=== PATIENT | female | born 1945 | race Caucasian/White ===

== ENCOUNTER 2024-08-20 14:32 | Inpatient (IN) ==
--- NOTE | 2024-08-20 14:43 | Emergency Department Note ---
Impression & Plan Atrial fibrillation with rapid ventricular response, Pneumonia ED Provider Note NAME: TONE SCHAFER AGE: 78 SEX: F : 1945 ARRIVES VIA: Ambulance INFORMANT: Patient, EMS ED PROVIDER(S): Ildefonso Jimenez DO CHIEF COMPLAINT: Palpitations HPI: The patient is a 78-year-old female who was sent to the emergency department directly from [facility] for an evaluation of palpitations. The patient has been experiencing palpitations over the course of the last few days. She is also been short of breath. She has noticed some swelling in her lower extremities. She denies having any hemoptysis. She denies having any chest pain. She went to see and become established with a new primary care physician today. She was sent directly to the emergency department because of tachycardia. The patient does not have a history of atrial fibrillation. The patient states that she only has a history of asthma and she is been compliant with her outpatient medications otherwise. ROS: See above HPI for pertinent positives & negatives. A total of 10 systems reviewed and were otherwise negative. PAST MEDICAL HISTORY: See Below PAST SURGICAL HISTORY: See Below FAMILY HISTORY: See Below SOCIAL HISTORY: See Below HOME MEDICATIONS: See Below ALLERGIES: See Below VITALS: See Below PHYSICAL EXAMINATION: GENERAL: Patient is awake alert in no acute distress patient is resting comfortably and showing no signs of anxiety EYES: The conjunctivae are clear. The pupils are round and reactive. EARS, NOSE, MOUTH AND THROAT: The nose is without any evidence of any deformity. NECK: The neck is nontender and supple. HJR was noted. RESPIRATORY: Diminished breath sounds are noted at both bases. There were rales at both bases. There was mild conversational dyspnea. CARDIOVASCULAR: Cardiac and irregular heart sounds were noted to auscultation. There is no definite murmur. GASTROINTESTINAL: The abdomen is soft. Abdomen is nontender. MUSCULOSKELETAL/EXTREMITIES: There is no evidence of gross deformity full range of motion is noted in the hips and shoulders. SKIN: Skin is warm and dry. Pedal edema was noted bilaterally. NEUROLOGIC: Patient is awake alert and oriented to place and situation. MEDICAL DECISION MAKING: The patient is a 78-year-old female who presented to the emergency department for an evaluation of difficulty breathing. The patient's been having difficulty breathing over the course of the last several days. She went to see and become established with a new family doctor who was at [facility]. They noticed that she was in rapid atrial fibrillation and sent the patient to the emergency department. The patient was treated with IV Cardizem in the emergency department. Her chest x-ray does appear to be consistent with some volume overload but also the possibility of pneumonia. For this reason she was also treated with IV antibiotics. I discussed the patient's laboratory and radiographic studies with her. Her heart rate did improved. I discussed her condition with the on-call [facility] hospitalist. They have agreed to evaluate the patient in the emergency department. Likely she will require further workup which will be done as an inpatient. Triage Nursing notes reviewed. Prior medical records reviewed Vital Signs: reviewed and remarkable for tachycardia. Differential diagnosis: Premature contractions, electrolyte abnormality, cardiac dysrhythmia, thyroid dysfunction, pulmonary embolism, infection, gastrointestinal, as well as other pathologies. ER treatment provided: See below Diagnostics interpreted by me: ECG: EKG was obtained in the emergency department. My interpretation is atrial fibrillation at 148 bpm. PVCs were noted. Nonspecific ST depressions were noted. No previous tracing was available. An EKG obtained at the primary care physician's office was evaluated. My interpretation is atrial fibrillation at [address] segment depressions were noted. This compares similar to the EKG obtained in the emergency department. Cardiac Monitoring: An order was placed for continuous cardiac monitoring. The monitor shows a rate of 110 bpm with atrial fibrillation and RVR. Laboratory studies: As stated above and show below. Imaging studies: See below. Radiographic imaging was reviewed by myself Consultation(s): I discussed this case with Cassidy who is on-call for the [facility] Hospitalist group. ED COURSE: Procedures: none Critical Care: I have personally spent greater than 45 minutes of critical care time in the direct management of this patient. This includes bedside care, interpretation of diagnostic studies, and testing, discussion with consultants, patient, and family members, and other required patient management activities. This 45 minutes is in excess of all separately billable procedures. Past Med/Surg History Problem List (Updated 08/20/24 @ 16:27 by Ildefonso Jimenez DO) Pneumonia (Acute) Atrial fibrillation with rapid ventricular response (Acute) Medical History Asthma Surgical History No pertinent past surgical history Social History Smoking Status: Never smoker Preferred Language: Cameroonian Feels Safe at Home: Yes Allergies Allergies Allergy/AdvReac Type Severity Reaction Status Date / Time No Known Allergies Allergy Unverified 09/21/19 09:22 Home Meds Home Medications Medication Instructions Recorded Confirmed cetirizine 10 mg tablet (Zyrtec) 10 mg PO DAILY 09/21/19 08/20/24 fluticasone 250 mcg-salmeterol 50 1 inh inhalation DAILY 09/21/19 08/20/24 mcg/dose blistr powdr for inhalation (Advair Diskus) montelukast 10 mg tablet 10 mg PO DAILY 09/21/19 08/20/24 (Singulair) Oxygen 08/20/24 08/20/24 albuterol sulfate 90 mcg/actuation 1 inh inhalation QID PRN Shortness 08/20/24 08/20/24 aerosol inhaler Of Breath Or Wheezing coenzyme Q10 10 mg capsule (Co 10 mg PO DAILY 08/20/24 08/20/24 Q-10) mecobalamin (vitamin B12) 1,000 1,000 mcg PO DAILY 08/20/24 08/20/24 mcg chewable tablet (B12 Active) thyroid (pork) 60 mg tablet 60 mg PO QAM 08/20/24 08/20/24 Results & Data (ED) Vital Signs Vital Signs - 24 hr 08/20/24 14:39 08/20/24 14:39 08/20/24 14:39 Temperature 36.8 C Temperature Source Oral Pulse Rate 147 H Pulse Rate [Apical] Respiratory Rate 22 Respiratory Effort / Characteristics Non-Labored Respiratory Depth Normal Normal Blood Pressure 110/95 Blood Pressure [Left Arm] Blood Pressure Mean 100 Blood Pressure Mean [Left Arm] Blood Pressure Position [Left Arm] Pulse Oximetry 96 Oxygen Delivery Method Room Air Room Air Sepsis Recent Fever Within 48 Hours No Sepsis New/Unexplained Change in Mental Status No Sepsis Action Taken by Nursing Physician Notified 08/20/24 14:39 08/20/24 14:59 08/20/24 15:19 Temperature Temperature Source Pulse Rate 130 H Pulse Rate [Apical] 122 H Respiratory Rate 20 20 Respiratory Effort / Characteristics Non-Labored Non-Labored Respiratory Depth Normal Normal Blood Pressure Blood Pressure [Left Arm] 139/89 Blood Pressure Mean Blood Pressure Mean [Left Arm] 105 Blood Pressure Position [Left Arm] Pulse Oximetry 93 Oxygen Delivery Method Room Air Sepsis Recent Fever Within 48 Hours Sepsis New/Unexplained Change in Mental Status Sepsis Action Taken by Nursing 08/20/24 16:54 08/20/24 18:30 Temperature Temperature Source Pulse Rate Pulse Rate [Apical] 119 H 110 H Respiratory Rate 20 24 Respiratory Effort / Characteristics Respiratory Depth Normal Normal Blood Pressure Blood Pressure [Left Arm] 123/93 118/90 Blood Pressure Mean Blood Pressure Mean [Left Arm] 103 99 Blood Pressure Position [Left Arm] Lying Pulse Oximetry 97 95 Oxygen Delivery Method Room Air Room Air Sepsis Recent Fever Within 48 Hours Sepsis New/Unexplained Change in Mental Status Sepsis Action Taken by Jail Medications Current Medication List: was personally reviewed by me Laboratory Data Attestation: I reviewed the patient's lab results. 08/20/24 14:45 08/20/24 14:45 Lab Results 08/20/24 08/20/24 Range/Units 14:45 16:06 WBC 12.20 H (4.8-10.8) K/ul RBC 4.86 (4.20-5.40) M/uL Hgb 14.7 (12.0-16.0) g/dl Hct 44.9 (37.0-47.0) % MCV 92.4 (80.0-100.0) fL MCH 30.2 (25.0-34.0) pg MCHC 32.7 (32.0-36.0) g/dL RDW Std Deviation 49.4 H (36.4-46.3) fL RDW Coeff of [place] 14.5 (11.5-14.5) % Plt Count 192 (130-400) K/uL MPV 10.3 (9.4-12.4) fL Immature Gran % (Auto) 0.5 % Neut % (Auto) 77.4 % Lymph % (Auto) 11.4 % [place] % (Auto) 9.8 % Eos % (Auto) 0.7 % Baso % (Auto) 0.2 % Neut # (Auto) 9.45 H (1.40-6.50) K/uL Lymph # (Auto) 1.39 (1.20-3.40) K/uL [place] # (Auto) 1.19 H (0.11-0.59) K/uL Eos # (Auto) 0.08 (0.00-0.50) K/uL Baso # (Auto) 0.03 (0.00-0.20) K/uL Immature Gran # (Auto) 0.06 (0.01-0.20) K/uL PT 10.8 (9.0-12.0) Seconds INR 1.0 (0.9-1.1) APTT 29 (21-31) Seconds PTT Ratio 1.1 VBG pH 7.40 (7.36-7.41) VBG pCO2 45 (38-50) mmHg VBG pO2 < 20 mmHg VBG HCO3 28 mmol/L VBG O2 Saturation < 60.0 % VBG Base Excess 2.5 mEq/L Sodium 138 (136-145) mmol/L Potassium 4.0 (3.5-5.1) mmol/L Chloride 103 (98-107) mmol/L Carbon Dioxide 25 (21-32) mmol/L Anion Gap 10 (3-11) BUN 16 (6-23) mg/dl Creatinine 1.02 (0.6-1.2) mg/dl Est Cr Clr Drug Dosing 53.9 ml/min eGFR 55.96 BUN/Creatinine Ratio 15.7 (10-20) Glucose 114 H (70-99(Fasting)) mg/dl Lactate 1.4 (0.4-2.0) mmol/L Calcium 9.4 (8.6-10.3) mg/dl Magnesium 2.1 (1.7-2.4) mg/dl Total Bilirubin 0.7 (0.2-1.0) mg/dl AST 13 (13-39) U/L ALT 12 (7-52) U/L Alkaline Phosphatase 85 (34-104) U/L Troponin I High Sens 12.2 (0-14) pg/ml C-Reactive Protein 4.45 H (0-0.5) mg/dl Total Protein 7.7 (6.0-8.3) gm/dl Albumin 4.1 (3.4-5.0) gm/dl Globulin 3.6 (2.5-4.0) gm/dl Albumin/Globulin Ratio 1.1 (0.9-2) Procalcitonin < 0.02 (0-0.5) ng/ml TSH 5.959 H (0.300-4.500) uIu/ml Free T4 0.87 (0.61-1.60) ng/dl SARS-CoV-2 (PCR) NEGATIVE (Negative) Influenza Type A (PCR) Negative (Neg) Influenza Type B (PCR) Negative (Neg) RSV (RT-PCR) Negative (Neg) Administered Medications Guaifenesin/Codeine Phosphate (Guaifenesin/Codeine 100mg/10mg 5ml Udc) 5 ml PO Q6H PRN PRN Reason: Cough Stop: 09/19/24 17:07 Last Admin: 08/20/24 18:07 Dose: 5 ml Documented By: MARTHA Diltiazem HCl 125 mg/ Dextrose 125 mls @ 5 mls/hr IV .Q24H EVARISTO; Protocol Stop: 09/19/24 17:14 Last Admin: 08/20/24 18:08 Dose: 5 mg/hr, 5 mls/hr Documented By: MARTHA Co-signed By: JENNIFFER Discontinued Medications Diltiazem HCl (Diltiazem Hcl 5 Mg/Ml 5 Ml Vial) 10 mg IV NOW STA Stop: 08/20/24 14:43 Last Admin: 08/20/24 14:46 Dose: 10 mg Documented By: MARTHA Co-signed By: KELSIE Diltiazem HCl (Diltiazem Hcl 5 Mg/Ml 5 Ml Vial) 10 mg IV NOW STA Stop: 08/20/24 16:48 Last Admin: 08/20/24 17:26 Dose: 10 mg Documented By: MARTHA Co-signed By: DRAGAN Furosemide (Furosemide Inj 20 Mg/2 Ml Vial) 20 mg IV ONE ONE Stop: 08/20/24 17:16 Last Admin: 08/20/24 17:59 Dose: 20 mg Documented By: MARTHA Magnesium Sulfate/Dextrose (Magnesium Sulfate / D5w) 1 gm in 100 mls @ 100 mls/hr IV NOW STA Stop: 08/20/24 15:41 Last Infusion: 08/20/24 16:16 Dose: Infused Documented By: Admin: 08/20/24 14:47 Dose: 100 mls/hr Documented By: MARTHA Ceftriaxone Sodium (Rocephin) 2,000 mg in 50 mls @ 100 mls/hr IV NOW STA Stop: 08/20/24 15:54 Last Infusion: 08/20/24 17:13 Dose: Infused Documented By: Admin: 08/20/24 16:38 Dose: 100 mls/hr Documented By: MARTHA Ioversol (Optiray 320 125ml) 119 ml IV ONCE ONE Stop: 08/20/24 19:08 Last Admin: 08/20/24 19:08 Dose: 119 ml Documented By: JAZMIN Imaging Data Attestation: I personally reviewed and interpreted this imaging study as follows: My Impression: 1 view chest x-ray was obtained in the emergency department. My interpretation is questionable infiltrate noted, no free air, final report below. Radiologist's Impression: Chest X-Ray 08/20/24 14:42 XR chest 1V portable HISTORY: 78 years-old Female Dysrhythmia acute shortness of breath COMPARISON: None TECHNIQUE: AP view of the chest FINDINGS: Ill-defined medial right upper lung opacities. Layering left pleural effusion with left basilar consolidation. Pulmonary vascular congestion. Probable trace right pleural effusion. Bones appear grossly intact. IMPRESSION: 1. Cardiomegaly with pulmonary vascular congestion. 2. Moderate left and trace right pleural effusions and left basilar consolidation. 3. Possible right upper lobe airspace opacities. Attention at follow-up recommended. ACT 112: Negative or not required by law. The above report was generated using voice recognition software. It may contain grammatical, syntax or spelling errors. Electronically signed by: Yash Hunter M.D. 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 ED Provider: Ildefonso Jimenez Discharge Problem: Atrial fibrillation with rapid ventricular response, Pneumonia Patient Disposition: Being Evaluated by Hospitalist Forms Stand Alone Forms: My [facility] [place] Prescriptions Prescriptions: No Action fluticasone propion-salmeterol [Advair Diskus] 250-50 mcg/dose Blister With Device 1 inh INHALATION DAILY cetirizine [Zyrtec] 10 mg Tablet 10 mg PO DAILY montelukast [Singulair] 10 mg Tablet 10 mg PO DAILY thyroid (pork) 60 mg tablet 60 mg PO QAM (DME) Oxygen Rx Instructions: per pt she had a oxygen compressor/nasal cannula that she used has needed and it helped her greatly but someone came the other day and took it from her coenzyme Q10 [Co Q-10] 10 mg Capsule 10 mg PO DAILY albuterol sulfate 90 mcg/actuation Hfa Aerosol Inhaler 1 inh INHALATION QID PRN (Reason: Shortness Of Breath Or Wheezing) mecobalamin (vitamin B12) [B12 Active] 1,000 mcg Tablet,Chewable 1,000 mcg PO DAILY Referrals Referrals: PCP,NO [Physician] - Discharge Problem: Pneumonia Qualifiers: Pneumonia type: due to unspecified organism Laterality: unspecified laterality Lung location: unspecified part of lung Qualified Code(s): J18.9 - Pneumonia, unspecified organism
[2024-08-20] MEDS: dilTIAZem HCl 5 MG/ML 5 ML VIAL IV STA ×2 (14:46→17:26)
[2024-08-20] MEDS: MAGNESIUM SULFATE / D5W 1 GM/100 ML BAG IV STA (14:47)
[2024-08-20 15:05] LABS: Basophils # (auto) 0.03 K/uL (0.00-0.20); Basophils % (auto) 0.2 %; Eosinophils # (auto) 0.08 K/uL (0.00-0.50); Eosinophils % (auto) 0.7 %; Hematocrit (blood only) 44.9 % (37.0-47.0); Hemoglobin 14.7 g/dl (12.0-16.0); Immature Granulocytes # (auto) 0.06 K/uL (0.01-0.20); Immature Granulocytes % (auto) 0.5 %; Lymphocytes # (auto) 1.39 K/uL (1.20-3.40); Lymphocytes % (auto) 11.4 %; Mean Corpuscular Hemoglobin 30.2 pg (25.0-34.0); Mean Corpuscular Hgb Conc 32.7 g/dL (32.0-36.0); Mean Corpuscular Volume 92.4 fL (80.0-100.0); Mean Platelet Volume 10.3 fL (9.4-12.4); Monocytes # (auto) 1.19 K/uL (0.11-0.59); Monocytes % (auto) 9.8 %; Neutrophils # (auto) 9.45 K/uL (1.40-6.50); Neutrophils % (auto) 77.4 %; Platelet Count 192 K/uL (130-400); RDW Coefficient of Variation 14.5 % (11.5-14.5); RDW Standard Deviation 49.4 fL (36.4-46.3); Red Blood Count 4.86 M/uL (4.20-5.40)
--- NOTE | 2024-08-20 15:19 | XRay Report ---
XR chest 1V portable HISTORY: 78 years-old Female Dysrhythmia acute shortness of breath COMPARISON: None TECHNIQUE: AP view of the chest FINDINGS: Ill-defined medial right upper lung opacities. Layering left pleural effusion with left basilar conso lidation. Pulmonary vascular congestion. Probable trace right pleural effusion. Bones appear grossly intact. IMPRESSION: 1. Cardiomegaly with pulmonary vascular congestion. 2. Moderate left and trace right pleural effusions and left basilar consolidation. 3. Possible right upper lobe airspace opacities. Attention at follow-up recommended. ACT 112: Negative or not required by law. The above report was generated using voice recognition software. It may contain grammatical, syntax o r spelling errors. Electronically signed by: Yash Hunter M.D. 08/20/2024 3:17 PM
[2024-08-20 15:25] LABS: Albumin Globulin Ratio 1.1 (0.9-2); Albumin Level 4.1 gm/dl (3.4-5.0); BUN Creatinine Ratio 15.7 (10-20); Bilirubin,Total 0.7 mg/dl (0.2-1.0); Calcium 9.4 mg/dl (8.6-10.3); Creatinine Clr Calc Pharmacy 53.9 ml/min; Globulin 3.6 gm/dl (2.5-4.0); Magnesium 2.1 mg/dl (1.7-2.4); Total Protein 7.7 gm/dl (6.0-8.3)
[2024-08-20 15:30] LABS: Troponin I High Sensitivity 12.2 pg/ml (0-14)
[2024-08-20 15:33] LABS: Partial Thromboplastin Ratio 1.1; Partial Thromboplastin Time 29 Seconds (21-31); Prothrombin Time 10.8 Seconds (9.0-12.0)
[2024-08-20 15:40] LABS: Thyroid Stimulating Hormone 5.959 uIu/ml (0.300-4.500)
[2024-08-20 15:54] LABS: C Reactive Protein 4.45 mg/dl (0-0.5)
[2024-08-20 16:12] LABS: T4 Free Thyroxine 0.87 ng/dl (0.61-1.60)
[2024-08-20 16:15] LABS: Base Excess VBG 2.5 mEq/L; HCO3 VBG 28 mmol/L; Oxygen Saturation VBG < 60.0 %; PCO2 VBG 45 mmHg (38-50); PO2 VBG < 20 mmHg
[2024-08-20 16:35] LABS: Influenza A virus by PCR Negative (Neg); Influenza B virus by PCR Negative (Neg); RSV by PCR Negative (Neg); SARS CoV2 RNA(COVID-19) Ceph NEGATIVE (Negative)
[2024-08-20] MEDS: cefTRIAXone SODIUM 2,000 MG/50 ML BAG IV STA (16:38)
--- NOTE | 2024-08-20 16:43 | History & Physical Report ---
Date of Service August 20, 2024 Assessment & Plan (1) Atrial fibrillation with rapid ventricular response: (2) Pneumonia: (3) Asthma: Plan A-fib with RVR -Appears to be new onset, has never previously been diagnosed with such, possibly in the setting of acute pneumonia and infection. -Patient started on Cardizem bolus 10 mg IV x 1 - will continue on drip for now. Not previously on any cardiac medications - Start heparin gtt, CHADs VASC score of 3 - Check echo - Lasix 20 mg IV for significant lower extremity edema, place purwick - Will start metoprolol tartrate 25 mg Q6H - Consult cardiology - discussed with Dr. Robins - Check A1 with a.m. labs with hyperglycemia - Previous lipid panel was elevated showing triglycerides 175, cholesterol 243, HDL 45, LDL 163 on outpatient epic review - Noted TSH is elevated today at 5.95, previously in May this year was 2.13 Multifocal pneumonia History of asthma -Increased O2 needs, previously on O2 at home, removed recently, will need to step prior to discharge home -Advair daily at home, will switch over to levalbuteral nebs here, pulmonary toilet with incentive spirometer, flutter, Mucinex, Tessalon Perles, robitussin w/codeine for cough -May benefit from dose of Solu-Medrol IV with asthmatic history -CRP elevated at 4.45, WBC BC 12.2, no left shift, ABG is reviewed and is within normal limits -IV ceftriaxone started in the ER, follow blood culture, obtain sputum culture if produces -Check MRSA swab -COVID/RSV/flu swab is negative -CXR reviewed showing left trace and right pleural effusion, left basilar consolidation, right upper lobe opacity - Will check CTA chest to r/o PE with above DVT ppx: teds, scds, heparin gtt Lines: PIV x 2 FEN/GI: Heart healthy CODE: Full code Dispo: From home, likely to remain in the hospital x 1-2 days A total of 75 minutes were spent with greater than 50% of that time face to face with the patient, personally reviewing all current laboratories, imaging studies, past medication reconciliation, outpatient chart review, and discussion with specialists to collaborate care for the patient with attending. Please see attending documentation for corrections and/or additions. Update: Patient is refusing heparin drip and the CTA chest to nursing. I have gone back and spoken with the patient and her again. She would like to eat something first and is asking what dose her heparin is several times. I have informed her that it is 27 mL/h after evaluating the weight-based dosing with nurse at bedside. She would still like to think about this. She was advised to continue heparin drip and have CTA completed as recommended. History of Present Illness Chief Complaint: Palpitations Primary Care Provider: NO PCP This is a 78-year-old female with PMHx of asthma, without any significant cardiac history who presented to PCP office today to establish as a new patient. She had complaints at that point in time of increased dyspnea on exertion worsening within the past 1 week, mild cough, previously had O2 as needed however does not have access to this at home recently. She was requesting oxygen prescription to be set up for her at outpatient clinic. She was found to be in rapid atrial fibrillation at the office and therefore sent over to the hospital. Patient had rates up into the 120s. She was given Cardizem IV bolus 10 mg x 1. IV magnesium 1 g. CXR showed left trace and right pleural effusion, left basilar consolidation and right upper lobe opacities concerning for pneumonia versus fluid overload. She was started on IV ceftriaxone in the ER. Upon my visit in the ER, pt HR remain in the 130s and she is asymptomatic. Allergies Allergy/AdvReac Type Severity Reaction Status Date / Time No Known Allergies Allergy Unverified 09/21/19 09:22 Home Medications Medication Instructions Recorded Confirmed Type cetirizine 10 mg tablet (Zyrtec) 10 mg PO DAILY 09/21/19 08/20/24 History fluticasone 250 mcg-salmeterol 50 1 inh inhalation DAILY 09/21/19 08/20/24 History mcg/dose blistr powdr for inhalation (Advair Diskus) montelukast 10 mg tablet 10 mg PO DAILY 09/21/19 08/20/24 History (Singulair) Oxygen 08/20/24 08/20/24 History albuterol sulfate 90 mcg/actuation 1 inh inhalation QID PRN Shortness 08/20/24 08/20/24 History aerosol inhaler Of Breath Or Wheezing coenzyme Q10 10 mg capsule (Co 10 mg PO DAILY 08/20/24 08/20/24 History Q-10) mecobalamin (vitamin B12) 1,000 1,000 mcg PO DAILY 08/20/24 08/20/24 History mcg chewable tablet (B12 Active) thyroid (pork) 60 mg tablet 60 mg PO QAM 08/20/24 08/20/24 History Past Med/Surg History Problem List (Updated 08/20/24 @ 16:27 by Ildefonso Jimenez DO) Pneumonia (Acute) Atrial fibrillation with rapid ventricular response (Acute) Medical History Asthma Surgical History No pertinent past surgical history Social History Smoking Status: Never smoker Preferred Language: Iranian Feels Safe at Home: Yes Review of Systems Review of Systems: Constitutional: No fever, sweats or chills Eyes: No diplopia, no worsening or blurred vision ENT: normal hearing, no trouble swallowing Respiratory: + cough, + clear sputum, +dyspnea at rest or on exertion Cardiovascular: No chest pain, tightness , + palpitations Abdomen: No pain, nausea, vomiting, diarrhea or constipation Musculoskeletal: No joint pain, calf pain, swelling Neurologic: No weakness, numbness/tingling, or balance problems Psychiatric: No anxiety or depression Skin: No rash or itch Physical Exam Physical Exam: General: awake, alert, no apparent distress, white female Head: Normocephalic, atraumatic ENT: PERRL, EOMI, no pharyngeal exudate, mucous membranes moist Chest: + coarse breath sounds throughout, +Faint crackles LLL and RLL, on room air O2 sats are 93% Cardiac: irregularly irregular with HR in 130s, + faint JEANNINE, no JVD, normal peripheral pulses, good capillary refill Abdominal: NABS x 4 quadrants, soft, nondistended, nontender to palpation, no rebound or guarding Extremities: +3 pitting edema BLE in feet and ankles, chronic skin changes from swelling, no peripheral erythema, calfs nontender to palpation Psych: Normal mood and affect Neuro: AAO x 3, strength intact bilaterally and rated 5/5, no motor deficits, speech is clear, no peripheral sensory deficits Results & Data Results & Data Vital Signs (Past 12 Hours) Vital Signs Temp Pulse Pulse Resp BP BP Pulse Ox 08/20/24 15:19 122 H 20 139/89 93 08/20/24 14:59 130 H 08/20/24 14:39 20 08/20/24 14:39 08/20/24 14:39 36.8 C 147 H 22 110/95 96 O2 Del Method 08/20/24 15:19 Room Air 08/20/24 14:59 08/20/24 14:39 08/20/24 14:39 Room Air 08/20/24 14:39 Room Air Laboratory Results 08/20/24 16:06 Aerobic Blood Culture - Pending Blood Anaerobic Blood Culture - Pending 08/20/24 16:07 Aerobic Blood Culture - Pending Blood Anaerobic Blood Culture - Pending 08/20/24 08/20/24 16:06 14:45 WBC 12.20 H RBC 4.86 Hgb 14.7 Hct 44.9 MCV 92.4 MCH 30.2 MCHC 32.7 RDW Std Deviation 49.4 H RDW Coeff of Cierra 14.5 Plt Count 192 MPV 10.3 Immature Gran % (Auto) 0.5 Neut % (Auto) 77.4 Lymph % (Auto) 11.4 [place] % (Auto) 9.8 Eos % (Auto) 0.7 Baso % (Auto) 0.2 Neut # (Auto) 9.45 H Lymph # (Auto) 1.39 [place] # (Auto) 1.19 H Eos # (Auto) 0.08 Baso # (Auto) 0.03 Immature Gran # (Auto) 0.06 PT 10.8 INR 1.0 APTT 29 PTT Ratio 1.1 VBG pH 7.40 VBG pCO2 45 VBG pO2 < 20 VBG HCO3 28 VBG O2 Saturation < 60.0 VBG Base Excess 2.5 Sodium 138 Potassium 4.0 Chloride 103 Carbon Dioxide 25 Anion Gap 10 BUN 16 Creatinine 1.02 Est Cr Clr Drug Dosing 53.9 eGFR 55.96 BUN/Creatinine Ratio 15.7 Glucose 114 H Lactate 1.4 Calcium 9.4 Magnesium 2.1 Total Bilirubin 0.7 AST 13 ALT 12 Alkaline Phosphatase 85 Troponin I High Sens 12.2 C-Reactive Protein 4.45 H Total Protein 7.7 Albumin 4.1 Globulin 3.6 Albumin/Globulin Ratio 1.1 Procalcitonin < 0.02 TSH 5.959 H Free T4 0.87 SARS-CoV-2 (PCR) NEGATIVE Influenza Type A (PCR) Negative Influenza Type B (PCR) Negative RSV (RT-PCR) Negative Diagnostic Findings Chest X-Ray 08/20/24 14:42 XR chest 1V portable HISTORY: 78 years-old Female Dysrhythmia acute shortness of breath COMPARISON: None TECHNIQUE: AP view of the chest FINDINGS: Ill-defined medial right upper lung opacities. Layering left pleural effusion with left basilar consolidation. Pulmonary vascular congestion. Probable trace right pleural effusion. Bones appear grossly intact. IMPRESSION: 1. Cardiomegaly with pulmonary vascular congestion. 2. Moderate left and trace right pleural effusions and left basilar consolidation. 3. Possible right upper lobe airspace opacities. Attention at follow-up recommended. ACT 112: Negative or not required by law. The above report was generated using voice recognition software. It may contain grammatical, syntax or spelling errors. Electronically signed by: Yash Hunter M.D. 08/20/2024 3:17 PM ECG Additional Comments: EKG reviewed personally showing A-fib RVR with heart rate 148, QTc prolonged at 505 Code Status & VTE Plan Code Status Full code - discussed with pt and her at bedside Supervising Physician Co-Signing Physician Notes Attending addendum: The patient was seen and examined in emergency room in presence of the She has been complaining of shortness of breath with exertion for the last few days Denies any palpitation or chest pain Denies any fever or chills except today when she noted to have mild temperature elevation She has cough without any productive phlegm On examination Lying in bed very shows but no other distress Hemodynamically stable with tachycardia around 119 Chestminimally decreased breath sounds without any significant wheezing minimal bibasilar crackles HeartS1, S2 irregularly irregular Abdomenbenign Extremitiesbilateral leg edema about 2+ surgery chronic with lymphedema CNSalert, awake and oriented x 3, no focal sensory and motor deficit apprec iated Her admission labs, EKG and imaging studies reviewed Noted to have A-fib with RVR associated with left lower lobe pneumonia and possible mild congestive changes She will be given intravenous heparin and also Cardizem drip for the heart Will start with IV ceftriaxone and doxycycline for pneumonia and also will give small dose of Lasix Continue with her inhalers as an outpatient Reviewed with assessment and plan as outlined above by Melissa Chavis [facility] sunitha BOYKIN and take the full responsibility of the care DR Miles Scott (2) Pneumonia Laterality: unspecified laterality Lung location: unspecified part of lung Pneumonia type: due to unspecified organism Qualified Code(s): J18.9 - Pneumonia, unspecified organism
[2024-08-20] MEDS ORDERED: Heparin IV Adult Wt-Based Standard *NO* INITIAL Bolus Protocol IV STA (17:05)
[2024-08-20] MEDS ORDERED: STAT IV Infusion **Titration per Protocol STA (17:05)
[2024-08-20] MEDS: FUROSEMIDE INJ 20 MG/2 ML VIAL IV ONE (17:59)
[2024-08-20] MEDS: guaiFENesin/CODEINE 100MG/10MG 5ML UDC PO PRN (18:07)
[2024-08-20] MEDS: dilTIAZem HCL 125 MG in DEXTROSE 5% 100 ML IV SCH (18:08)
[2024-08-20] MEDS: OPTIRAY 320 125ml IV ONE (19:08)
--- NOTE | 2024-08-20 19:48 | CT Scan Report ---
Exam(s): CTA CHEST IV Amt: 119 ml optiray 320 EXAM: CT Angiography Chest With Intravenous Contrast CLINICAL HISTORY: Reason for exam: PE. TECHNIQUE: Axial computed tomographic angiography images of the chest with intravenous contrast. CTDI is 24 mGy and DLP is 686 mGy-cm. Automated exposure control was utilized for the study. A dose lowering technique was utilized adhering to the principles of ALARA. MIP reconstructed images were created and reviewed. COMPARISON: No relevant prior studies available. FINDINGS: Limitations: Motion artifact. Pulmonary arteries: Adequate pulmonary artery opacification. No evidence of acute pulmonary embolism as visualized. Assessment is limited by respiratory motion. Aorta: No acute findings. No aortic aneurysm or dissection. Lungs: Left hemidiaphragm elevation with left greater than right bibasilar atelectasis. Small regions of ground-glass opacity in the right upper and right middle lobes which are nonspecific. Pleural space: Unremarkable. No pleural effusion or pneumothorax. Heart: Coronary artery atherosclerosis. No cardiomegaly or pericardial effusion. Bones/joints: Degenerative change in the thoracic spine. No acute fracture. No dislocation. Soft tissues: Unremarkable. Lymph nodes: Unremarkable. No enlarged lymph nodes. IMPRESSION: 1. Small regions of ground-glass opacity in the right upper and right middle lobes which are nonspecific. Correlate for viral/atypical infection. 2. No evidence of acute pulmonary embolism as visualized. Assessment is limited by respiratory motion. 3. Left hemidiaphragm elevation with left greater than right bibasilar atelectasis. Electronically signed by: Olga Gutiérrez M.D. 08/20/24 19:47 PM
[2024-08-20] MEDS ORDERED: ACETAMINOPHEN 325 MG TAB PO PRN (19:57)
[2024-08-20] MEDS ORDERED: ONDANSETRON INJ 2 MG/ML 2 ML VIAL IV PRN (19:57)
[2024-08-20] MEDS: LEVALBUTEROL HCL 0.63 MG/3 ML NEB NEB SCH (20:17)
[2024-08-20] MEDS: BENZONATATE 100 MG CAPSULE PO SCH (20:43)
[2024-08-20] MEDS: guaiFENesin 600 MG TABCR PO SCH (20:44)
[2024-08-20] MEDS: METOPROLOL TARTRATE 25 MG TAB PO STA (20:44)
[2024-08-20] MEDS: methylPREDNISolone 125 MG/2 ML VIAL IV STA (21:48)
--- NOTE | 2024-08-20 23:31 | Electrocardiogram Report ---
Test Reason : Blood Pressure : */* mmHG Vent. Rate : 148 BPM Atrial Rate : * BPM P-R Int : * ms QRS Dur : 82 ms QT Int : 322 ms P-R-T Axes : * 52 -52 degrees QTcB Int : 505 ms Atrial fibrillation with rapid ventricular response with premature ventricular or aberrantly conducte d complexes Low voltage QRS Nonspecific ST and T wave abnormality Abnormal ECG No previous ECGs available Confirmed by Merrick Burkett ([id number]) on 08/20/2024 11:31:43 PM Referred By: Confirmed By: Merrick [email or web address]
[2024-08-20] MEDS: DEXTROMETHORPHAN POLYMR COMPLX 30 MG/5 ML UDP PO STA (23:37)
[2024-08-21] MEDS: METOPROLOL TARTRATE 25 MG TAB PO SCH (00:05)
[2024-08-21] MEDS ORDERED: methylPREDNISolone 125 MG/2 ML VIAL IV SCH (03:00)
[2024-08-21] MEDS: methylPREDNISolone 40 MG in SYRINGE 0 ML IV SCH (03:19)
[2024-08-21] MEDS: ARMOUR THYROID 30 MG TAB PO SCH (06:08)
[2024-08-21 06:23] LABS: Hematocrit (blood only) 41.2 % (37.0-47.0); Hemoglobin 13.5 g/dl (12.0-16.0); Mean Corpuscular Hemoglobin 30.2 pg (25.0-34.0); Mean Corpuscular Hgb Conc 32.8 g/dL (32.0-36.0); Mean Corpuscular Volume 92.2 fL (80.0-100.0); Mean Platelet Volume 10.2 fL (9.4-12.4); Platelet Count 178 K/uL (130-400); RDW Coefficient of Variation 14.3 % (11.5-14.5); RDW Standard Deviation 48.4 fL (36.4-46.3); Red Blood Count 4.47 M/uL (4.20-5.40); White Blood Count 10.37 K/ul (4.8-10.8)
[2024-08-21 06:54] LABS: Calcium 8.9 mg/dl (8.6-10.3); Magnesium 2.3 mg/dl (1.7-2.4); Potassium 4.1 mmol/L (3.5-5.1)
[2024-08-21 07:00] LABS: BUN Creatinine Ratio 18.3 (10-20); Creatinine Clr Calc Pharmacy 57.4 ml/min
[2024-08-21 08:21] LABS: Estimated Average Glucose 117 mg/dl; Hemoglobin A1C 5.7 % (4.5-5.6)
--- NOTE | 2024-08-21 08:40 | Cardiology Consultation ---
Date of Consultation August 21, 2024 Assessment & Plan (1) Pneumonia: (2) New onset atrial fibrillation: (3) CKD (chronic kidney disease) stage 3, GFR 30-59 ml/min: (4) Thoracic aortic atherosclerosis: (5) Ascending aorta enlargement: Plan Pneumonia. As per Hospitalist Service Atrial fibrillation. New onset. Observed in the setting off community acquire pneumonia. Duration unknown. Status post spontaneous conversion to sinus rhythm while off telemetry from 18:03 to 19:30, without overt clinical sequela. [id number] is at least 4 points for a female greater than 75 years of age with thoracic aortic plaque observed on imaging this admission. Options of management discussed with patient. We discussed the pathophysiology of atrial fibrillation, rate versus rhythm control, risks and benefits of anticoagulation, etc. Recommend addition of low dose beta-chaim therapy with metoprolol succinate 25 mg/day. Recommend Eliquis anticoagulation 5 mg twice a day for at least the next month. I do not think there will be a significant issue with beta-chaim therapy with her asthma history. Calcium channel chaim therapy will likely aggravate her chronic lower extremity edema which is an issue for her. Recommend avoiding antiarrhythmic therapy noting the mildly prolonged QTc interval on EKG's this admission. Mildly dilated ascending aorta. General management of thoracic aortic aneurysms includes measures to reduce cardiovascular risk, aggressive blood pressure control, statin therapy, avoiding heavy lifting and exercises involving sustained Valsalva maneuver, avoidance of fluoroquinolones. Recommend routine surveillance monitoring. Dyslipidemia. LDL cholesterol 175 mg/dL at [facility] last year, 163 mg/dL on 06/25/2024. Risks and benefits of lipid lowering therapy discussed and declined by the patient. Exertional dyspnea. Recommend referral for stress testing after resolution of the acute pulmonary exacerbation. Peripheral edema. Examination with lymphedematous changes. Recommend utilization of knee high compression stockings, 20 mmHg, on in the AM and off in the evening. I spent a total of 70 minutes coordinating, documenting, and providing care for this patient excluding time spent in the performance of separately billed services or time spent by another provider. Supervising Physician Co-Signing Physician Notes Attending attestation: Case reviewed with the advanced practitioner. I have personally performed a history and physical examination on the patient. I have reviewed the advanced practitioner's documentation on the date of service referenced in note, and I agree with, and take responsibility for the plan of care. Subjective: Patient seen and examined. Spouse , Tha, in room with her. Patient denies symptoms of chest pain or shortness of breath. Exam: CV: regular rhythm, no murmurs, no edema Data: Review of telemetry reveals patient to be off monitor from 18:03 to 19:30, spontaneously converting back to sinus while off monitor. Telemetry thereafter reveals sinus in the 60's with occasional premature atrial contractions. EKG this morning reveals sinus bradycardia at 58 bpm with nonspecific T wave abnormality. QTc prolonged at 490 ms. Echocardiogram performed today while patient was in sinus rhythm Borderline concentric left ventricular perjury present LV wall motion, normal LVEF in the range of 60-65% The right ventricular chamber size and systolic function is normal. The left atrium is mildly dilated Mild mitral crustacean is present. Grade II diastolic dysfunction noted The pulm artery systolic pressure is estimated be 47 mmHg (mildly elevated). Impression/ Plan: Newly diagnosed paroxysmal atrial fibrillation ([id number] score of 4, for risk factors of age over 75 years, female, atherosclerotic plaque in thoracic aorta, predicting 4.8% annual risk of stroke). Grade II diastolic dysfunction without overt volume overload s/p single dose of IV furosemide possible underlying pneumonia suspected cognitive impairment / dementia * Pt in SR. Recommend metoprolol succinate 25 mg daily and Eliquis 5 mg two times per day. * discussed at length with patient and spouse- patient declines medications at present. * Updated patient's daughter, Kerri Ma, mobile number [phone]. * Can reconvene discussion in outpatient cardiology follow up. I spent a total of 45 minutes coordinating, documenting, and providing care for this patient excluding time spent in the performance of separately billed services or time spent by another provider. Justo Robins DO History of Present Illness Reason for Consultation: New onset atrial fibrillation with a rapid ventricular response Requesting Physician: [facility]ist Service, Melissa Donald Attending Physician: Dr. Rhina Cho MD History of Present Illness Katherine Espinoza is a 78 year old female who presented to [facility] on 08/20/2024 with complaints of a cough and acute on chronic dyspnea. She was found to be in atrial fibrillation with a rapid ventricular response and was referred to the [facility] for further evaluation and treatment. EKG in the ER revealed atrial fibrillation with a ventricular rate of 148 bpm with premature ventricular or aberrantly conducted complexes, low voltage, diffuse ST-T wave abnormality, QTc of 505 ms. Potassium and magnesium were normal. TSH was mildly elevated at 5.959 uIu/mL. Chest x-ray revealed ill- defined medial right upper lung opacities, layering left pleural effusion with left basilar consolidation, pulmonary vascular congestion, probable trace right pleural effusion as per radiology interpretation. Chest CTA, as interpreted by the radiologist revealed small regions of ground-glass opacity in the right upper and right middle lobes and left hemidiaphragm elevation with left greater than right bibasilar atelectasis. There was no evidence of acute pulmonary embolism. The ascending aorta is mildly enlarged on my review. In the ER the patient was evaluated by Dr. Ildefonso Jimenez. She was given 10 mg of IV Cardizem 1, 1 gram of IV magnesium, and IV ceftriaxone. On admission she was prescribed a cardizem drip, IV heparin, and oral metoprolol. She has refused IV heparin and Cardizem. She received three doses of oral metoprolol on 08/20/2024 at 20:44, 08/21/2024 at 00:05, and a third dose on 08/21/2024 at 6:08. Patient received 20 mg IV furosemide on admission. Review of telemetry reveals patient to be off monitor from 18:03 to 19:30, spontaneously converting back to sinus while off monitor. Telemetry thereafter reveals sinus in the 60's with occasional premature atrial contractions. EKG this morning reveals sinus bradycardia at 58 bpm with nonspecific T wave abnormality. QTc prolonged at 490 ms. Patient denies cardiac history. She specifically denies history of arrhythmia, WI, CAD, CHF, heart murmur, rheumatic fever, or scarlet fever. She has exertional dyspnea that she attributes to asthma and utilized supplemental oxygen as needed however she has not had this since she moved to [facility]. She denies chest pain. She notes chronic lower extremity edema and has been thinking about using compression stockings. She denies orthopnea or PND. She has never been evaluated for sleep apnea. She denies dizziness, near syncope, or syncope. She denies bleeding issues, epistaxis, hemoptysis, melena, hematochezia, or hematuria. Past Medical and Surgical History: Asthma Hypoxemia, utilizing supplemental oxygen as needed. Stage III chronic kidney disease. Hypothyroidism GERD History of Guillain-Villaseñor syndrome Severe Covid infection, 2020 Osteoporosis in 1975 Family History: Mother with diabetes mellitus, "she just got too old." Father worked for [employer], crushed at the [employer], with significant disability thereafter. Six siblings without known cardiac disease. Social History: Never smoker. Never smokeless tobacco user. Rare alcohol, maybe a glass of wine on Thanksgiving. No illegal drug use. Originally from [place]. 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 . Moved to [facility] to be close to her family - daughter Kerri, son-in-law Dr. Agustín Ma. Allergies Allergy/AdvReac Type Severity Reaction Status Date / Time No Known Allergies Allergy Unverified 09/21/19 09:22 Home Medications Medication Instructions Recorded Confirmed Type cetirizine 10 mg tablet (Zyrtec) 10 mg PO DAILY 09/21/19 08/20/24 History fluticasone 250 mcg-salmeterol 50 1 inh inhalation DAILY 09/21/19 08/20/24 History mcg/dose blistr powdr for inhalation (Advair Diskus) montelukast 10 mg tablet 10 mg PO DAILY 09/21/19 08/20/24 History (Singulair) Oxygen 08/20/24 08/20/24 History albuterol sulfate 90 mcg/actuation 1 inh inhalation QID PRN Shortness 08/20/24 08/20/24 History aerosol inhaler Of Breath Or Wheezing coenzyme Q10 10 mg capsule (Co 10 mg PO DAILY 08/20/24 08/20/24 History Q-10) mecobalamin (vitamin B12) 1,000 1,000 mcg PO DAILY 08/20/24 08/20/24 History mcg chewable tablet (B12 Active) thyroid (pork) 60 mg tablet 60 mg PO QAM 08/20/24 08/20/24 History Patient History Medical History Asthma Surgical History No pertinent past surgical history Social History Smoking Status: Never smoker Hx Alcohol Use: Yes Alcohol type: wine Hx Substance Use: No Preferred Language: Citizen Of [place] Communication Ability: Effective Scrap Kettle Tender Required: No Beliefs That Will Affect Care: None Current Living Situation: Spouse Feels Safe at Home: Yes Assistive Devices: Cane and Oxygen - at Night Review of Systems Review of Systems: Complete Review of Systems is as stated above, negative, or noncontributory. Physical Exam Physical Exam: General: Pleasant. Comfortable. Cooperative. NAD. HENT: Normocephalic. Atraumatic. Eyes: PER. Conjunctiva pink, sclera clear. Neck: No carotid bruits. No JVD. No HJR. Heart: RRR, 60 bpm. Grade I-II/ systolic murmur. No diastolic murmur. No rub Lungs: Diminished. Scattered rhonchi that improve post cough. No wheeze. Abdomen: +BS. Soft. Nontender. No masses or organomegaly. Extremities: Lymphedematous changes, without significant edema. No clubbing. No cyanosis. Limited neurological examination: Mild cognitive impairment seems to be present. Pulses: Radial=2/4, posterior tibial=1-2/4. Results & Data Vital Signs (Past 12 Hours) Vital Signs Temp Pulse Pulse Resp BP BP BP 08/21/24 07:27 63 08/21/24 07:24 59 L 18 08/21/24 07:10 36.7 C 57 L 18 123/73 08/21/24 06:08 64 135/87 08/21/24 02:30 36.6 C 61 17 107/67 08/21/24 00:24 90 20 120/74 08/20/24 22:38 72 08/20/24 22:32 37.3 C 82 22 111/68 08/20/24 22:17 72 26 H Pulse Ox O2 Del Method 08/21/24 07:27 08/21/24 07:24 91 Room Air 08/21/24 07:10 91 Room Air 08/21/24 06:08 08/21/24 02:30 91 Room Air 08/21/24 00:24 95 Room Air 08/20/24 22:38 08/20/24 22:32 93 Room Air 08/20/24 22:17 94 Room Air Laboratory Results Cardiac Enzymes 08/20/24 Range/Units 14:45 AST 13 (13-39) U/L Troponin I High Sens 12.2 (0-14) pg/ml Coagulation 08/20/24 Range/Units 14:45 PT 10.8 (9.0-12.0) Seconds APTT 29 (21-31) Seconds CBC 08/20/24 08/21/24 Range/Units 14:45 05:55 WBC 12.20 H 10.37 (4.8-10.8) K/ul RBC 4.86 4.47 (4.20-5.40) M/uL Hgb 14.7 13.5 (12.0-16.0) g/dl Hct 44.9 41.2 (37.0-47.0) % Plt Count 192 178 (130-400) K/uL Neut # (Auto) 9.45 H (1.40-6.50) K/uL Lymph # (Auto) 1.39 (1.20-3.40) K/uL Elk # (Auto) 1.19 H (0.11-0.59) K/uL Eos # (Auto) 0.08 (0.00-0.50) K/uL Baso # (Auto) 0.03 (0.00-0.20) K/uL Comprehensive Metabolic Panel 08/20/24 08/21/24 Range/Units 14:45 05:55 Sodium 138 142 (136-145) mmol/L Potassium 4.0 4.1 (3.5-5.1) mmol/L Chloride 103 107 (98-107) mmol/L Carbon Dioxide 25 26 (21-32) mmol/L BUN 16 17 (6-23) mg/dl Creatinine 1.02 0.93 (0.6-1.2) mg/dl Glucose 114 H 170 H (70-99(Fasting)) mg/dl Calcium 9.4 8.9 (8.6-10.3) mg/dl AST 13 (13-39) U/L ALT 12 (7-52) U/L Alkaline Phosphatase 85 (34-104) U/L Total Protein 7.7 (6.0-8.3) gm/dl Albumin 4.1 (3.4-5.0) gm/dl Intake and Output 08/20/24 08/21/24 08/21/24 22:59 06:59 14:59 Intake Total 150 / 283.917 133.917 / 283.917 Output Total 150 / 150 Balance 150 / 133.917 -16.083 / 133.917 Intake: IV 150 / 183.917 33.917 / 183.917 Magnesium Sulfate / D5w 1 gm In 100 / 100 100 ml @ 100 mls/hr IV NOW STA Rx#:[id number] cefTRIAXone SODIUM 2,000 mg In 50 / 50 50 ml @ 100 mls/hr IV NOW STA Rx#:[id number] dilTIAZem HCL 125 mg In 33.917 / 33.917 Dextrose 5% 100 ml @ 0 MG/HR IV .Q0M [facility] Rx#:[id number] Oral 100 / 100 Output: Urine 150 / 150 Other: # Unmeasured Voids 1 1 # Urine Diapers 1 Weight 92.9 kg 92.9 kg Weight Measurement Method [facility] Diagnostic Findings Telemetry: Atrial fibrillation on presentation. Off monitor from 18:03 to 19:30. Sinus rhythm with atrial ectopy since back on monitor. Heart rates currently in the 60's. (1) Pneumonia Laterality: unspecified laterality Lung location: unspecified part of lung Pneumonia type: due to unspecified organism Qualified Code(s): J18.9 - Pneumonia, unspecified organism
[2024-08-21] MEDS: CETIRIZINE HCL 10 MG TABLET PO SCH (08:51)
[2024-08-21] MEDS: MONTELUKAST SODIUM 10 MG TABLET PO SCH (08:52)
[2024-08-21] MEDS: FLUTICASONE/VILANTEROL 200/25MCG 14 PUFFS/INHALER INH SCH (08:53)
--- NOTE | 2024-08-21 10:46 | Hospitalist Progress Note ---
Date of Service August 21, 2024 Assessment & Plan (1) Atrial fibrillation with rapid ventricular response: (2) Pneumonia: (3) Asthma: Plan A-fib with RVR New onset Shirt Turner cayetano noted Discussed with patient and at bedside Discussed extensively the benefit of management with BB and anticoagulation Patient declined any medication management at this time TSH is elevated at 5.95, fT4 within normal range of 0.87 PCP can recheck in 6-8 weeks Multifocal pneumonia History of asthma -Increased O2 needs, previously on O2 at home, removed recently -Advair daily at home On admission, CRP elevated at 4.45, WBC BC 12.2, no left shift COVID/RSV/flu swab is negative CXR reviewed showing left trace and right pleural effusion, left basilar consolidation, right upper lobe opacity CTA chest noted small ground glass opacity in RUL, RML. No PE Continue levalbuteral nebs, pulmonary toilet with incentive spirometer, flutter, Continue antitussive IV ceftriaxone and doxycycline Needs amb pulse ox/2 step prior to dc / blood cultures growing GPR today. ?contamination. Will monitor HbA1c 5.7 Possible prediabetes DVT ppx: teds, scds CODE: Full code I spent a total of 50 minutes coordinating, documenting and providing care for this patient excluding time spent in performance of separately billed services Admission and Anticipated Discharge Date Admission Date: August 20, 2024 Subjective Patient seen and examined Denied chest pain, palpitations Reports dry cough that worsened in the past few days with some shortness of breath. Denied any other complaints on ROS Physical Exam Constitutional: + well hydrated; no acute distress Eyes: PERRL, conjunctivae normal, anicteric sclerae ENMT: external ear and nose normal, oropharynx normal Respiratory: On room air, in no respiratory distress, Diminished breath sounds, +rhonchi Cardiovascular: Rate/Rhythm: regular rate and regular rhythm Gastrointestinal (Abdomen): normal bowel sounds, soft, nontender, no hepatosplenomegaly Musculoskeletal: +trace pedal edema Neurologic: PERRL, EOMI, accommodation nl, no face palsy, no dysarthria Psychiatric: A+Ox3, euthymic affect Results & Data Results & Data Vital Signs (Past 12 Hours) Vital Signs Temp Pulse Pulse Resp BP BP Pulse Ox 08/21/24 10:11 70 18 92 08/21/24 07:27 63 08/21/24 07:24 59 L 18 91 08/21/24 07:10 36.7 C 57 L 18 123/73 91 08/21/24 06:08 64 135/87 08/21/24 02:30 36.6 C 61 17 107/67 91 08/21/24 00:24 90 20 120/74 95 O2 Del Method 08/21/24 10:11 Room Air 08/21/24 07:27 08/21/24 07:24 Room Air 08/21/24 07:10 Room Air 08/21/24 06:08 08/21/24 02:30 Room Air 08/21/24 00:24 Room Air Laboratory Results Abnormal lab results 08/20/24 08/21/24 Range/Units 14:45 05:55 WBC 12.20 H (4.8-10.8) K/ul RDW Std Deviation 49.4 H 48.4 H (36.4-46.3) fL Neut # (Auto) 9.45 H (1.40-6.50) K/uL [place] # (Auto) 1.19 H (0.11-0.59) K/uL Glucose 114 H 170 H (70-99(Fasting)) mg/dl Hemoglobin A1c 5.7 H (4.5-5.6) % C-Reactive Protein 4.45 H (0-0.5) mg/dl TSH 5.959 H (0.300-4.500) uIu/ml (2) Pneumonia Laterality: unspecified laterality Lung location: unspecified part of lung Pneumonia type: due to unspecified organism Qualified Code(s): J18.9 - Pneumonia, unspecified organism
[2024-08-21 11:29] LABS: A calco-baum cmplx NotReported Not Detected (NotDetected); Bact fragilis Not Reported Not Detected (NotDetected); Blood Culture Id Panel PCR Panel Negative (NotDetected); C auris Not Reported Not Detected (NotDetected); Calbicans Not Reported Not Detected (NotDetected); Candida glabrata Not Reported Not Detected (NotDetected); Candida krusei Not Reported Not Detected (NotDetected); Cneoformans/gatti Not Reported Not Detected (NotDetected); Cparapsilosis Not Reported Not Detected (NotDetected); E cloacae compx Not Reported Not Detected (NotDetected); Efaecalis Not Reported Not Detected (NotDetected); Efaecium Not Reported Not Detected (NotDetected); Enterobacterales Not Reported Not Detected (NotDetected); Escherichia coli Not Reported Not Detected (NotDetected); H influenzae Not Reported Not Detected (NotDetected); K aerogenes Not Reported Not Detected (NotDetected); Koxytoca Not Reported Not Detected (NotDetected); Kpneumoniae grp Not Reported Not Detected (NotDetected); Lmonocyt Not Reported Not Detected (NotDetected); N meningitidis Not Reported Not Detected (NotDetected); P aeruginosa Not Reported Not Detected (NotDetected); Proteus spp Not Reported Not Detected (NotDetected); Salmonella spp Not Reported Not Detected (NotDetected); Staph lugdunensis Not Reported Not Detected (NotDetected); Staph spp. Not Reported Not Detected (NotDetected); Staphaureus Not Reported Not Detected (NotDetected); Staphepi Not Reported Not Detected (NotDetected); Stenmaltophilia Not Reported Not Detected (NotDetected); Strep agal(GrpB) Not Reported Not Detected (NotDetected); Strep pneum Not Reported Not Detected (NotDetected); Strep pyog (GrpA) Not Reported Not Detected (NotDetected); Strep spp Not Reported Not Detected (NotDetected)
[2024-08-21] MEDS: DOXYCYCLINE HYCLATE 100 MG CAP PO SCH (11:36)
[2024-08-21] MEDS: HEPARIN SODIUM/DEXTROSE 25,000 UNITS/500 ML BAG IV SCH (13:28)
--- NOTE | 2024-08-21 14:58 | Electrocardiogram Report ---
Test Reason : Blood Pressure : */* mmHG Vent. Rate : 58 BPM Atrial Rate : 58 BPM P-R Int : 138 ms QRS Dur : 84 ms QT Int : 500 ms P-R-T Axes : 55 48 72 degrees QTcB Int : 490 ms Sinus bradycardia Nonspecific T wave abnormality Prolonged QT Abnormal ECG When compared with ECG of 20-Aug-2024 14:39, Sinus rhythm has replaced Atrial fibrillation Vent. rate has decreased by [address] no longer depressed in Lateral leads Confirmed by Merrick Burkett ([id number]) on 08/21/2024 2:58:06 PM Referred By: REFERRED SELF Confirmed By: Merrick Burkett
[2024-08-21] MEDS: cefTRIAXone SODIUM 1,000 MG/50 ML BAG IV SCH (16:12)
--- OUTSIDE RECORDS SUMMARY | 2024-08-21 23:45 | External Medical Summary | Summary of Care ---
Author Name Unknown Organization [facility] Address [address] [place] [address] Phone [phone] Care Team Providers Care Mortgage Originator Name Role Phone Unavailable Primary Care Provider Unavailabl e Reason for Visit * Reason Onset Date Comments Medication Refill 07/15/2024 Encounter Details Date Type Department Care Team (Late st Contact Info) Description 07/15/2024 Refill General Internal Medicine [facility] [address] [place] [address] Brenna Singh PA-C [address] [place] [address] Allergies No known active allergiesdocumented as of this encounter (statuses as of 07/16/2024) Medications Medication Sig Dispensed Refills Start Date End Date Status Cetirizine HCl 10 MG Oral Tablet (ZyrTEC) Take 1 Tablet by mouth. Active Fluticasone-Salmetero l 500-50 MCG/ACT Inhalation Aerosol Powder Breath Activated (Advair Diskus) Inhale 1 Puff by mouth. 06/21/2023 Active Co Q 10 10 MG Oral Capsule Take by mouth. Active Albuterol Sulfate HFA 108 (90 Base) MCG/ACT Inhalation Aerosol Solution Inhale 2 Puffs by mouth. 06/21/2023 Active Montelukast Sodium 10 MG Oral Tablet (Singulair) Take 1 Tablet by mouth at bedtime. 90 Tablet 3 07/15/2024 Active Thyroid 60 MG Oral Tablet (Mesa Thyroid) Take 1 Tablet by mouth in the morning. 90 Tablet 3 07/15/2024 Active Vitamin B-12 1000 MCG Oral Tablet (Cyanocobalamin) Take 1 Tablet by mouth in the morning. 90 Tablet 3 07/15/2024 Active documented as of this encounter (statuses as of 07/16/2024) Active Problems No known active problems documented as of this encounter (statuses as of 07/16/2024) Social History Tobacco Use Types Packs/Day Years Used Date Smoking Tobacco: Never Smokeless Tobacco: Never Alcohol Use Standard Drinks/Week Comments Never 0 (1 standard drink = 0.6 oz pur e alcohol) Utilities Answer Date Recorded Do you have trouble paying y our heating, water, or electric bill? (Adult - for ages 18 years and over) Not on file 06/02/2024 Is your family able to pay t he heat, water, or electric bill? (Household - for ages 0-17 years) Not on file 06/02/2024 Does your family have access to good internet? (Household - for ages 0-17 years) Not on file 06/02/2024 Social Connections Answer Date Recorded How often do you feel lonely or isolated from those around you? (Adult - for ages 18 years and over) Not on file 06/02/2024 Sex and Gender Information Value Date Recorded Sex Assigned at Not on file Gender Identity Female 07/08/2024 11:57 AM EDT Sexual Orientation Straight 07/08/2024 11 :57 AM EDT Job Start Date Occupation Industry Not on file Not on file Not on file documented as of this encounter Miscellaneous Notes * Telephone Encounter - Beba Figueroa - 07/16/2024 7:42 AM EDTRefused Prescriptions: Disp Refills Vitamin B-12 1000 MCG Oral Tablet (Cyanoco*90 Tab*3 Sig: Take 1Tablet by mouth in the morning.Refused By: Gallo FIGUEROAon for Refusal: Duplicate Request------- documented in this encounter Plan of Treatment Upcoming Encounters Date Type Department Care Team ([facility] st Contact Info) Description 09/03/2024 11:00 AM EST Office Visit General Internal Medicine [facility] [address] [place] [address] Brenna Singh PA-C [address] [place] [id number] Health Maintenance Due Date Last Done Comments Depression Screening 1957 Hepatitis C Screening 1963 DTap/Tdap Vaccines (1 - Tdap) 1963 Zoster Vaccines (1 of 2) 1994 Pneumococcal Vaccine: 65+ Years (2 of 2 - PCV) 09/18/2012 09/18/2011, 07/05/2006 COVID-19 Vaccine (2023-2 5 season) 2024 Influenza Vaccine (FLU shot) (#1) 2024 DXA Scan 07/08/2034 07/08/2024 HPV (Gardasil) Vaccine Aged Out No lo nger eligible based on patient's age to complete this topic Hepatitis B Vaccine Aged Out No longe r eligible based on patient's age to complete this topic MENINGOCOCCAL (MENACTRA/MENVEO) Aged Out No longer eligible b ased on patient's age to complete this topic documented as of this encounter Medical Devices Not on filedocumented as of this encounter
--- OUTSIDE RECORDS SUMMARY | 2024-08-21 23:45 | External Medical Summary | Summary of Care ---
Author Name Unknown Organization [facility] Address [address] [place] [address] Phone [phone] Care Team Providers Care Hand Stoner Name Role Phone Unavailable Primary Care Provider Unavailabl e Reason for Visit * Reason Comments Outpatient Testing Encounter Details Date Type Department Care Team ([facility] st Contact Info) Description 06/25/2024 9:30 AM EDT Laboratory Laboratory [facility] [address] [place] [address] [facility] [address] [facility] [place] [address] Decreased GFR; Lipid screening Allergies No known active allergiesdocumented as of this encounter (statuses as of 06/25/2024) Medications Medication Sig Dispensed Refills Start Date End Date Status Thyroid 60 MG Oral Tablet ([place] Thyroid) Take 1 Tablet by mouth in the morning. 09/16/2023 Active Cetirizine HCl 10 MG Oral Tablet (ZyrTEC) Take 1 Tablet by mouth. Active Vitamin B-12 1000 MCG Oral Tablet (Cyanocobalamin) Take 1 Tablet by mouth in the morning. 09/16/2023 Active Fluticasone-Salmeterol 500-50 MCG/ACT Inhalation Aerosol Powder Breath Activated (Advair Diskus) Inhale 1 Puff by mouth. 06/21/2023 Active Montelukast Sodium 10 MG Oral Tablet (Singulair) Take 1 Tablet by mouth. 09/16/2023 Active Co Q 10 10 MG Oral Capsule Take by mouth. Active Albuterol Sulfate HFA 108 (90 Base) MCG/ACT Inhalation Aerosol Solution Inhale 2 Puffs by mouth. 06/21/2023 Active documented as of this encounter (statuses as of 06/25/2024) Active Problems No known active problems documented as of this encounter (statuses as of 06/25/2024) Social History Tobacco Use Types Packs/Day Years [...] Assigned at Not on file Gender Identity Not on file Sexual Orientation Not on file Job Start Date Occupation Industry Not on file Not on file Not on file documented as of this encounter Plan of Treatment Upcoming Encounters Date Type Department Care Team (Late st Contact Info) Description 07/08/2024 3:00 PM EDT Imaging Radiology, [address] [place] [address] 09/03/2024 11:00 AM EST Office Visit General Internal Medicine [facility] [address] [place] [address] Brenna Singh PA-C [address] [place] [address] Pending Results Name Type Priority Associated Diagnoses Date /Time BASIC METABOLIC PANEL Lab Routine Decreased GFR 06/25/2024 9:28 AM EDT LIPID PANEL WITH DIRECT LDL IF TG IS HIGH Lab Routine Lipid screening 06/25/2024 9:28 AM EDT Health Maintenance Due Date Last Done Comments Depression Screening 1957 Hepatitis C Screening 1962 DTap/Tdap Vaccines (1 - Tdap) 1963 Zoster Vaccines (1 of 2) 1994 DXA Scan 2009 Pneumococcal Vaccine: 65+ Years (2 of 2 - PCV) 09/18/2012 09/18/2011, 07/05/2006 COVID-19 Vaccine ( - 2023-2 5 season) 2024 Influenza Vaccine (FLU shot) (#1) 2024 HPV (Gardasil) Vaccine Aged Out No lo [...] Not on filedocumented as of this encounter Visit Diagnoses Diagnosis Decreased GFR Nonspecific abnormal results of kidney function study Lipid screening Screening for lipoid disorders documented in this encounter
--- OUTSIDE RECORDS SUMMARY | 2024-08-21 23:45 | External Medical Summary | Summary of Care ---
Author Name Unknown Organization [facility] Address [address] [place] [address] Phone [phone] Care Team Providers Care Non Destructive Evaluation Technician Name Role Phone Unavailable Primary Care Provider Unavailabl e Reason for Visit * Reason Onset Date Comments Test Results 06/10/2024 Encounter Details Date Type Department Care Team ([facility] st Contact Info) Description 06/10/2024 Telephone General Internal Medicine [facility] [address] [place] [address] Brenna Singh PA-C [address] [place] [address] Test Results Allergies No known active allergiesdocumented as of this encounter (statuses as of 06/12/2024) Medications Medication Sig Dispensed Refills Start Date End Date Status Thyroid 60 MG Oral Tablet ([place] Thyroid) Take 1 Tablet by mouth in the morning. 09/16/2023 Active Cetirizine HCl 10 MG Oral Tablet (ZyrTEC) Take 1 Tablet by mouth. Active Vitamin B-12 1000 MCG Oral Tablet (Cyanocobalamin) Take 1 Tablet by mouth in the morning. 09/16/2023 Active Fluticasone-Salmeter ol 500-50 MCG/ACT Inhalation Aerosol Powder Breath Activated (Advair Diskus) Inhale 1 Puff by mouth. 06/21/2023 Active Montelukast Sodium 10 MG Oral Tablet (Singulair) Take 1 Tablet by mouth. 09/16/2023 Active Co Q 10 10 MG Oral Capsule Take by mouth. Active Albuterol Sulfate HFA 108 (90 Base) MCG/ACT Inhalation Aerosol Solution Inhale 2 Puffs by mouth. 06/21/2023 Active Furosemide 40 MG Oral Tablet (Lasix) Take 1 Tablet by mouth in the morning for 5 days. 5 Tablet 06/11/2024 06/16/2024 Active documented as of this encounter (statuses as of 06/12/2024) Active Problems No known active problems documented as of this encounter (statuses as of 06/12/2024) Social History Tobacco Use Types Packs/Day Years [...] encounter Miscellaneous Notes * Telephone Encounter - Georgiana Allen LPN - 06/12/2024 11:34 AM EDT Patient aware and verbalized understanding * Telephone Encounter - Tacho Caputo RN - 06/12/2024 10:02 AM EDT Called, left message for patient to return call to the dedicated nurse call center. Please see Brenna's previous message. * Telephone Encounter - Brenna Singh PA-C - 06/11/2024 9:42 AM EDT Can do short term 5 day course of Lasix to help get some fluid off then must start wearing compression stockings to keep the swelling from building back up. 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 Recheck labs again in 2 weeks. * Telephone Encounter - Saray Torres LPN - 06/11/2024 9:33 AM EDT Patient made aware of below. Patient states "this is ridiculous. I need a diuretic now, not in a month after more testing and more delays. Swelling hurts. It hurts when your skin is full of fluid andstretched." I asked if she has tried compression stockings and she said, "I have them but what I need is a diuretic. 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 Patient asked for message to be sent back to provider asking her to reconsider and for someone to call her back with Brenna's decision. * Telephone Encounter - Milo Caballero application integration architect - 06/11/2024 9:29 AM EDT Pt demanding to speak with DR office. Transferring. Thank You, Milo Caballero [place] Loss Prevention Supervisor II [facility] 06/11/2024, 9:29 AM * Telephone Encounter - Tacho Caputo RN - 06/10/2024 5:28 PM EDT Attempted to call patient, there was no answer, left voicemail. When patient returns call, ok for GUILLERMO to relay message, please refer to below documentation. If needed, can transfer to dedicated nurse line. * Telephone Encounter - Tacho Caputo RN - 06/10/2024 5:19 PM EDT ----- Message from Brenna Singh sent at 06/05/2024 1:04 PM EDT ----- Labs showing normal BNP, indicating low likelihood of CHF. TSH is normal and CBC without anemia. Renal function is showing some signs of kidney disease. Unsure what her previous baseline is. Would make sure the pt is drinking enough fluids--64 fl oz per day is goal. Would also recommend wearing some knee high compression socks to help with her swelling. Keeping legs elevated when possible is alsohelpful. Would like to avoid using diuretics at this time as I do not want to worsen her renal function. Would like to have her recheck her BMP in 1 month to monitor the renal function. documented in this encounter Plan of Treatment Upcoming Encounters Date Type Department Care Team (Late st Contact Info) Description 07/08/2024 3:00 PM EDT Imaging Radiology, [address] [place] [address] 09/03/2024 11:00 AM EST Office Visit General Internal Medicine [facility] [address] [place] [address] Brenna Singh PA-C [address] [place] [address] Health Maintenance Due Date Last Done Comments [...]
--- OUTSIDE RECORDS SUMMARY | 2024-08-21 23:45 | External Medical Summary ---
Author Name Unknown Address Unknown Organization [id number]:[facility] [address] Laboratory Report Ordering Provider Test Date Status LILIA BURKS 06/25/2024 09:28:42 Final Observation Date Value Abnormality Reference (Units ) Status BUN 06/25/2024 09:28:42 19 6-20 (mg/dL) Final Creatinine 06/25/2024 09:28:42 1.1 Above high normal 0.5-1.0 (mg/dL) Final Glomerular filtration rate/1.73 sq M.predicted [Volume Rate/Area] in Serum, Plasma or Blood by Creatinine-based formula (CKD-EPI) 06/25/2024 09:28:42 53 Below low normal >=60 (mL/min) Final eGFR is calculated based on the CKD-EPI 2020 equation. Sodium 06/25/2024 09:28:42 141 135-146 (m mol/L) Final Potassium 06/25/2024 09:28:42 4.6 3.5-5.1 (m mol/L) Final Cl 06/25/2024 09:28:42 105 98-107 (mm ol/L) Final CO2 06/25/2024 09:28:42 25 22-32 (mmo l/L) Final Anion gap 06/25/2024 09:28:42 11 7-15 (mmol /L) Final Glucose 06/25/2024 09:28:42 91 70-120 (mg /dL) Final Calcium 06/25/2024 09:28:42 9.5 8.4-10.2 ( mg/dL) Final Performing Location [facility] [place] [address]
--- OUTSIDE RECORDS SUMMARY | 2024-08-21 23:45 | External Medical Summary | Summary of Care ---
Author Name Unknown Organization [facility] Address [address] [place] [address] Phone [phone] Care Team Providers Care International First Officer Name Role Phone Unavailable Primary Care Provider Unavailabl e Reason for Visit * Reason Onset Date Comments Med Request 06/10/2024 Encounter Details Date Type Department Care Team ([facility] st Contact Info) Description 06/10/2024 Telephone General Internal Medicine [facility] [address] [facility] [address] Brenna Singh PA-C [address] [facility] [address] Med Request Allergies No known active allergiesdocumented as of this encounter (statuses as of 06/12/2024) Medications Medication Sig Dispensed Refills Start Date End Date Status Thyroid 60 MG Oral Tablet ([place] Thyroid) Take 1 Tablet by mouth in [...] encounter Miscellaneous Notes * Telephone Encounter - Tacho Caputo RN - 06/12/2024 10:00 AM EDT Please see other phone encounter from 06/10/2024 re: test results for more information. * Telephone Encounter - Mervat Kat OSA - 06/10/2024 9:31 AM EDT Pt had blood work done and is asking for the medication that she needs. Please advise. documented in this encounter Plan of Treatment Upcoming Encounters Date Type Department Care Team (Late st Contact Info) Description 07/08/2024 3:00 PM EDT Imaging Radiology, [address] [place] [address] 09/03/2024 11:00 AM EST Office Visit General Internal Medicine [facility] [address] [place] [address] Brenna Singh PA-C [address] [place] [address] Health Maintenance Due Date Last Done Comments [...]
--- OUTSIDE RECORDS SUMMARY | 2024-08-21 23:45 | External Medical Summary | Summary of Care ---
Author Name Unknown Organization [facility] Address [address] [place] [address] Phone [phone] Care Team Providers Care Director Of Religious Life Name Role Phone Unavailable Primary Care Provider Unavailabl e Reason for Visit * Reason Onset Date Comments Medication Refill 07/15/2024 Encounter Details Date Type Department Care Team (Late st Contact Info) Description 07/15/2024 Refill General Internal Medicine [facility] 200 [facility] [place] [address] Brenna Singh PA-C [address] [facility] [place] [address] Allergies No known active allergiesdocumented as of this encounter (statuses as of 07/17/2024) Medications Medication Sig Dispensed Refills Start Date [...] 07/15/2024 Active Thyroid 60 MG Oral Tablet ([place] Thyroid) Take 1 Tablet by mouth in the morning. 90 Tablet 3 07/15/2024 Active Vitamin B-12 1000 MCG Oral Tablet (Cyanocobalamin) Take 1 Tablet by mouth in the morning. 90 Tablet 3 07/15/2024 Active documented as of this encounter (statuses as of 07/17/2024) Active Problems No known active problems documented as of this encounter (statuses as of 07/17/2024) Social History Tobacco Use Types Packs/Day Years [...] encounter Miscellaneous Notes * Telephone Encounter - Gayle Merchant RPh - 07/17/2024 7:25 AM EDT Refused Prescriptions: Disp Refills Montelukast Sodium 10 MG Oral Tablet (Sing*90 Tab*3 Sig: Take 1Tablet by mouth at bedtime.Refused By: GAYLE MERCHANT for Refusal: Duplicate Request---- Electronically signed by Gayle Merchant [facility] at 07/17/2024 7:25 AM EDT documented in this encounter Plan of Treatment Upcoming Encounters Date Type Department Care Team (Late st Contact Info) Description 09/03/2024 11:00 AM EST Office Visit General Internal Medicine [facility] [place] [address] [facility] [address] [place] [address] Brenna Singh PA-C [address] [facility] [place] [address] Health Maintenance Due Date Last Done Comments [...]
--- OUTSIDE RECORDS SUMMARY | 2024-08-21 23:45 | External Medical Summary | Summary of Care ---
Author Name Unknown Organization [facility] Address [address] [place] [address] Phone [phone] Care Team Providers Care Cover Creaser Name Role Phone Unavailable Primary Care Provider Unavailabl e Reason for Visit * Reason Comments NEW PATIENT Est care. Encounter Details Date Type Department Care Team ([facility] Contact Info) Description 06/04/2024 4:00 PM EDT Office Visit General Internal Medicine [facility] [address] [place] [address] Brenna Singh PA-C [address] [place] [address] Encounter to establish care*; Dependent edema; Dyspnea on exertion; Postmenopausal status, age-related; Hypothyroidism, unspecified type; Asthma with severity to be determined Allergies No known active allergiesdocumented as of this encounter (statuses as of 06/04/2024) Medications Medication Sig Dispensed Refills Start Date End Date Status Thyroid 60 MG Oral Tablet ([place] Thyroid) Take 1 Tablet by mouth in [...] as of this encounter (statuses as of 06/04/2024) Active Problems No known active problems documented as of this encounter (statuses as of 06/04/2024) Social History Tobacco Use Types Packs/Day Years [...] on file documented as of this encounter Last Filed Vital Signs Vital Sign Reading Time Taken Comments Blood Pressure 110/82 06/04/2024 3:55 PM EDT Pulse 84 06/04/2024 3:55 PM EDT Temperature 37.4 C (99.4 F) 06/04/2024 3:55 PM ED T Respiratory Rate - - Oxygen Saturation 94% 06/04/2024 3:55 PM EDT Inhaled Oxygen Concentration - - Weight 95.8 kg (211 lb 4.8 oz) 06/04/2024 3:55 P M EDT Height - - Body Mass Index - - documented in this encounter Progress Notes * Brenna Singh PA-C - 06/04/2024 4:06 PM EDT Images from the original note were not included. History of Present Illness Katherine Espinoza is a 78 year old female that presents for NEW PATIENT (Est care.) Pt here today as a new patient to establish care. Recently moved to the area a few months ago from [place], with her to be closer to family. 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 Denies tobacco or ETOH use. Pt reports she had significant secondhand smoke exposure. Pt declines all vaccinations. No longer getting mammograms. Has never had a DEXA scan, but is open to this. reports the pt has been having ongoing dyspnea on exertion. The pt denies this. Review of Systems: See HPI for pertinent positives. All other review of systems is negative. Physical Exam Vitals: 06/04/24 1555 Temp: 37.4 C (99.4 F) Pulse: 84 SpO2: 94% BP: 110/82 Physical Exam Constitutional: General: She is not in acute distress. Appearance: She is not diaphoretic. HENT: Right Ear: Tympanic membrane, ear canal and external ear normal. Left Ear: Tympanic membrane, ear canal and external ear normal. Mouth/Throat: Mouth: Mucous membranes are moist. Pharynx: Oropharynx is clear. Cardiovascular: Rate and Rhythm: Normal rate and regular rhythm. Pulmonary: Effort: Pulmonary effort is normal. Breath sounds: Normal breath sounds. Abdominal: General: Bowel sounds are normal. Palpations: Abdomen is soft. Musculoskeletal: Cervical back: Normal range of motion and neck supple. Right lower leg: Pitting Edema (2-3+) present. Left lower leg: Pitting Edema (2-3+) present. Skin: General: Skin is warm and dry. Neurological: General: No focal deficit present. Mental Status: She is alert. Mental status is at baseline. I have reviewed the following results: Assessment and Plan Encounter to establish care Pt declines all vaccinations. Dependent edema Significant edema on exam. Will check labs today to eval for CHF. Will also eval renal function to determine eligibility for diuretics. - BNP, NT-PRO; Future - BASIC METABOLIC PANEL; Future Dyspnea on exertion See labs above. Will also check CBC to r/o anemia as contributing factor to MEYER. - CBC WITH WBC DIFFERENTIAL AND ANEMIA REFLEX WORKUP; Future Postmenopausal status, age-related Screening DEXA ordered. - DEXA SCAN/BONE MINERAL AXIAL; Future Hypothyroidism, unspecified type Update labs. Continue current meds. - TSH WITH FREE T4 IF INDICATED; Future Asthma with severity to be determined Continue current meds. Wrap-Up Follow Up: Return in about 3 months (around 09/03/2024) for Labs Today, Return with AP. | For: Labs Today, Return with AP Time: I spent a total of 30-39 minutes (exact time 36 mins) on the date of service in preparation, delivery, and documentation of the care provided to Katherine Espinoza excluding any time spent in the performance of separately billed services. documented in this encounter Nursing Notes * Rodger Horn CMA - 06/04/2024 3:55 PM EDT The patient has been properly identified by confirmation of name and date of . Chief Complaint Patient presents with NEW PATIENT Est care. documented in this encounter Plan of Treatment Upcoming Encounters Date Type Department Care Team (Late st Contact Info) Description 07/08/2024 3:00 PM EDT Imaging Radiology, [address] [place] [address] 09/03/2024 11:00 AM EST Office Visit General Internal Medicine [facility] [address] [place] [address] Brenna Singh PA-C [address] [place] [address] Pending Results Name Type Priority Associated Diagnoses Date /Time BNP, NT-PRO Lab Routine Dependent edema 06/04/2024 4:41 PM EDT BASIC METABOLIC PANEL Lab Routine Dependent edema 06/04/2024 4:41 PM EDT TSH WITH FREE T4 IF INDICATED Lab Routine Hypothyroidism, unspecified type 06/04/2024 4:41 PM EDT CBC WITH WBC DIFFERENTIAL AND ANEMIA REFLEX WORKUP Lab Routine Dyspnea on exertion 06/04/2024 4:41 PM EDT Scheduled Orders Name Type Priority Associated Diagnoses Orde r Schedule DEXA SCAN/BONE MINERAL AXIAL Medical Imaging Routine Postmenopausal status, age-related Expected: 06/04/2024 (Approximate), Expires: 07/04/2025 BNP, NT-PRO Lab Routine Dependent edema Expected: 06/04/2024 (Approximate), Expires: 06/04/2025 BASIC METABOLIC PANEL Lab Routine Dependent edema Expected: 06/04/2024 (Approximate), Expires: 06/04/2025 TSH WITH FREE T4 IF INDICATED Lab Routine Hypothyroidism, unspecified type Expected: 06/04/2024 (Approximate), Expires: 06/04/2025 CBC WITH WBC DIFFERENTIAL AND ANEMIA REFLEX WORKUP Lab Routine Dyspnea on exertion Expected: 06/04/2024 (Approximate), Expires: 06/04/2025 Health Maintenance Due Date Last Done Comments Depression Screening 1957 Hepatitis C Screening 1962 DTap/Tdap Vaccines (1 - Tdap) 1963 Zoster Vaccines (1 of 2) 1994 DXA Scan 2009 Pneumococcal Vaccine: 65+ Years (2 of 2 - PCV) 09/18/2012 09/18/2011, 07/05/2006 COVID-19 Vaccine ( - 2022-2 4 season) 2024 Influenza Vaccine (FLU shot) (#1) [...] as of this encounter Visit Diagnoses Diagnosis Encounter to establish care- Primary Other reasons for seeking consultation Dependent edema Edema Dyspnea on exertion Other dyspnea and respiratory abnormality Postmenopausal status, age-related Asymptomatic postmenopausal status (age-related) (natural) Hypothyroidism, unspecified type Asthma with severity to be determined documented in this encounter"
--- OUTSIDE RECORDS SUMMARY | 2024-08-21 23:45 | External Medical Summary | Summary of Care ---
Author Name Unknown Organization [facility] Address [address] [place] [address] Phone [phone] Care Team Providers Care Bioinformatics Scientist Name Role Phone Unavailable Primary Care Provider Unavailabl e Reason for Visit * Reason Onset Date Comments Medication Refill 07/15/2024 Encounter Details Date Type Department Care Team (Late st Contact Info) Description 07/15/2024 Refill General Internal Medicine [facility] 200 [facility] [place] [address] Brenna Singh PA-C [address] [facility] [place] [address] Allergies No known active allergiesdocumented as of [...] 07/15/2024 Active Thyroid 60 MG Oral Tablet ([place] Thyroid) Take 1 Tablet by mouth in [...] Telephone Encounter - Beba Figueroa - 07/16/2024 7:43 AM EDTRefused Prescriptions: Disp Refills Thyroid 60 MG Oral Tablet ([place] Thyroid) 90 Tab*3 Sig: Take 1Tablet by mouth in the morning.Refused By: Gallo FIGUEROAon for Refusal: Duplicate Request------- documented in this encounter Plan of Treatment Upcoming Encounters Date Type Department Care Team (Late st Contact Info) Description 09/03/2024 11:00 AM EST Office Visit General Internal Medicine [facility] [address] [place] [address] Brenna Singh PA-C [address] [place] [address] Health Maintenance Due Date Last Done Comments [...]
--- OUTSIDE RECORDS SUMMARY | 2024-08-21 23:45 | External Medical Summary ---
Author Name Unknown Address Unknown Organization K01:[facility] [address] [facility] [address] Laboratory Report Ordering Provider Test Date Status LILIA BURKS 06/04/2024 16:41:04 Final Observation Date Value Abnormality Reference (Units ) Status WBC, Total 06/04/2024 16:41:04 6.54 4.00-10.8 0 (K/uL) Final RBC 06/04/2024 16:41:04 4.90 3.85-5.15 (M/uL) Final Hemoglobin 06/04/2024 16:41:04 14.9 12.0-15.3 (g/dL) Final Anemia reflex testing trigge rs on a HGB < 12.0 for Females and HGB < 13.0 for Males in accordance with the WHO Anemia Guidelines
Anemia reflex testing triggers on a HGB < 12.0 for Females and HGB < 13.0 for Males in accordance with the WHO Anemia Guidelines HCT 06/04/2024 16:41:04 47.6 Above hi gh normal 36.0-45.2 (%) Final MCV 06/04/2024 16:41:04 97.1 81.5-97.5 (fL) Final MCH 06/04/2024 16:41:04 30.4 27.0-34.0 (pg) Final MCHC 06/04/2024 16:41:04 31.3 32.0-36.0 (g/dL) Final RDW 06/04/2024 16:41:04 14.8 11.5-15.5 (%) Final Platelets 06/04/2024 16:41:04 195 140-400 (K /uL) Final MPV 06/04/2024 16:41:04 10.6 6.6-11.1 ( fL) Final Nucleated erythrocytes/100 leukocytes [Ratio] in Blood by Automated count 06/04/2024 16:41:04 0 <=0 (/100 WBCs) Final Performing Location [facility] - [address] [facility] [address]
--- OUTSIDE RECORDS SUMMARY | 2024-08-21 23:45 | External Medical Summary ---
Author Name Unknown Address Unknown Organization K01:[facility] - [address] [facility] [address] Laboratory Report Ordering Provider Test Date Status LILIA BURKS 06/04/2024 16:41:04 Final Observation Date Value Abnormality Reference (Units ) Status TSH 06/04/2024 16:41:04 2.13 0.27-4.20 (uIU/mL) Final Performing Location [facility] - [address] [place] [id number]
--- OUTSIDE RECORDS SUMMARY | 2024-08-21 23:45 | External Medical Summary ---
Author Name Unknown Address Unknown Organization [id number]:[facility] [place] [address] [place] [address] Laboratory Report Ordering Provider Test Date Status LILIA BURKS 06/04/2024 16:41:04 Final Exclude Heart Failure: <300 pg/mL
Diagnose Heart Failure:
Age <50 yr: >450 pg/mL
50-75 yr: >900 pg/mL
>75 yr: >1800 pg/mL
GFR is 30-59 mL/min: >1200 pg/mL or Age- adjusted values
GFR <30 mL/min: do not use, not reliable

Prognostic threshold: 1000 pg/mL Observation Date Value Abnormality Reference (Units ) Status BNP, Pro-hormone 06/04/2024 16:41:04 97 <30 0 (pg/mL) Final Performing Location LAB[facility] [place] [facility] [place] [address] [place] [address]
--- OUTSIDE RECORDS SUMMARY | 2024-08-21 23:45 | External Medical Summary ---
Author Name Unknown Address Unknown Organization K01:LABORATORY [facility] - [address] [facility] [address] Laboratory Report Ordering Provider Test Date Status LILIA BURKS 06/25/2024 09:28:42 Final Observation Date Value Abnormality Reference (Units ) Status Triglyceride 06/25/2024 09:28:42 175 Above high normal <=174 (mg/dL) Final Triglyceride Reference Range s (mg/dL):
<150 Acceptable
150-174 Borderline high
175-499 High
>=500 Very high Cholesterol 06/25/2024 09:28:42 243 Above high normal <200 (mg/dL) Final Total Cholesterol Reference Ranges (mg/dL):
<200 Desirable
200-239 Borderline high
>=240 High HDL 06/25/2024 09:28:42 45 Below low normal >49 (mg/dL) Final HDL Cholesterol Reference Ra nges (mg/dL):
>=60 High (Desirable)
<50 Low (Undesirable) For Females
<40 Low (Undesirable) For Males NON-HDL CHOLESTEROL 06/25/2024 09:28:42 198 Above high normal <=159 (mg/dL) Final Non-HDL Cholesterol Referenc e Range (mg/dL):
<100 Target level for high risk ASCVD patient
<130 Optimal for general population
130-159 Near optimal for general population
160-189 Borderline High
190-219 High
>=220 Very High LDL, (calculated) 06/25/2024 09:28:42 163 Above high n ormal <=129 (mg/dL) Final LDL Cholesterol Reference Ra nges (mg/dL):
<70 Target level for high risk ASCVD patient
<100 Optimal for general population
100-129 Near optimal for general population
130-159 Borderline high
160-189 High
>=190 Very high Performing Location LABORATORY [facility] [place] - [address] [facility] [address]
--- OUTSIDE RECORDS SUMMARY | 2024-08-21 23:45 | External Medical Summary | Summary of Care ---
Author Name Unknown Organization [facility] Address [address] [place] [address] Phone [phone] Care Team Providers Care Allergy Nurse Name Role Phone Unavailable Primary Care Provider Unavailabl e Reason for Visit * Reason Onset Date Comments Med Request 06/10/2024 Encounter Details Date Type Department Care Team ([facility] st Contact Info) Description 06/10/2024 Telephone General Internal Medicine [facility] [address] [facility] [place] [address] Brenna Singh PA-C [address] [facility] [place] [address] Med Request Allergies No known active allergiesdocumented as of this encounter (statuses as of 06/10/2024) Medications Medication Sig Dispensed Refills Start Date End Date Status Thyroid 60 MG Oral Tablet (B[place]ett Thyroid) Take 1 Tablet by mouth in [...] as of this encounter (statuses as of 06/10/2024) Active Problems No known active problems documented as of this encounter (statuses as of 06/10/2024) Social History Tobacco Use Types Packs/Day Years [...] encounter Miscellaneous Notes * Telephone Encounter - Mervat Kat OSA - 06/10/2024 9:31 AM EDT Pt had blood work done and is asking for the medication that she needs. Please advise. documented in this encounter Plan of Treatment Upcoming Encounters Date Type Department Care Team (Late st Contact Info) Description 07/08/2024 3:00 PM EDT Imaging Radiology, [place] [address] [facility] [address] 09/03/2024 11:00 AM EST Office Visit General Internal Medicine [facility] [place] [address] [place] [address] Brenna Singh PA-C [address] [place] [address] Health Maintenance Due Date Last Done Comments [...]
--- OUTSIDE RECORDS SUMMARY | 2024-08-21 23:45 | External Medical Summary ---
Author Name Unknown Address Unknown Organization K01:[facility] [place] [address] [facility] [address] Laboratory Report Ordering Provider Test Date Status LILIA BURKS 06/04/2024 16:41:04 Final Observation Date Value Abnormality Reference (Units ) Status BUN 06/04/2024 16:41:04 22 Above high normal 6-20 (mg/dL) Final Creatinine 06/04/2024 16:41:04 1.2 Above high normal 0.5-1.0 (mg/dL) Final Glomerular filtration rate/1.73 sq M.predicted [Volume Rate/Area] in Serum, Plasma or Blood by Creatinine-based formula (CKD-EPI) 06/04/2024 16:41:04 48 Below low normal >=60 (mL/min) Final eGFR is calculated based on the CKD-EPI 2020 equation. Sodium 06/04/2024 16:41:04 142 135-146 (m mol/L) Final Potassium 06/04/2024 16:41:04 4.7 3.5-5.1 (m mol/L) Final Cl 06/04/2024 16:41:04 107 98-107 (mm ol/L) Final CO2 06/04/2024 16:41:04 23 22-32 (mmo l/L) Final Anion gap 06/04/2024 16:41:04 12 7-15 (mmol /L) Final Glucose 06/04/2024 16:41:04 96 70-120 (mg /dL) Final Calcium 06/04/2024 16:41:04 9.3 8.4-10.2 ( mg/dL) Final Performing Location [facility] [place] [address] [facility] [address]
--- OUTSIDE RECORDS SUMMARY | 2024-08-21 23:45 | External Medical Summary | Summary of Care ---
Author Name Unknown Organization [facility] Address [address] [place] [address] Phone [phone] Care Team Providers Care Claim Professional Name Role Phone Unavailable Primary Care Provider Unavailabl e Reason for Visit * Reason Comments Outpatient Testing Encounter Details Date Type Department Care Team (Late st Contact Info) Description 06/04/2024 4:40 PM EDT Laboratory Laboratory [facility] [address] [place] [id number] [facility] [address] [place] [address] Dependent edema; Hypothyroidism, unspecified type; Dyspnea on exertion Allergies No known active allergiesdocumented as of this encounter (statuses as of 06/04/2024) Medications Medication Sig Dispensed Refills Start Date End Date Status Thyroid 60 MG Oral Tablet ([place] Thyroid) Take 1 Tablet by mouth in [...] Description 07/08/2024 3:00 PM EDT Imaging Radiology, [address] [place] [address] 09/03/2024 11:00 AM EST Office Visit General Internal Medicine [facility] [address] [place] [address] Brenna Singh PA-C [address] [place] [address] Pending Results Name Type Priority Associated Diagnoses Date /Time BNP, NT-PRO Lab Routine Dependent edema 06/04/2024 4:41 PM EDT BASIC METABOLIC PANEL Lab Routine Dependent edema 06/04/2024 4:41 PM EDT TSH WITH FREE T4 IF INDICATED Lab Routine Hypothyroidism, unspecified type 06/04/2024 4:41 PM EDT CBC WITH WBC DIFFERENTIAL AND ANEMIA REFLEX WORKUP Lab Routine Dyspnea on exertion 06/04/2024 4:41 PM EDT ANEMIA CBC Lab Routine Dyspnea on exertion 06/04/2024 4:41 PM EDT DIFFERENTIAL, AUTOMATED Lab Routine Dyspnea on exertion 06/04/2024 4:41 PM EDT ANEMIA REFLEX CHEMISTRY HOLD Lab Routine Dyspnea on exertion 06/04/2024 4:41 PM EDT Health Maintenance Due Date Last Done Comments Depression Screening 1957 Hepatitis C Screening 1962 DTap/Tdap Vaccines (1 - Tdap) 1963 Zoster Vaccines (1 of 2) 1994 DXA Scan 2009 Pneumococcal Vaccine: 65+ Years (2 of 2 - PCV) 09/18/2012 09/18/2011, 07/05/2006 COVID-19 Vaccine (2022-2 4 season) 2024 Influenza Vaccine (FLU shot) [...] as of this encounter Visit Diagnoses Diagnosis Dependent edema Edema Hypothyroidism, unspecified type Dyspnea on exertion Other dyspnea and respiratory abnormality documented in this encounter
[2024-08-22 07:54] LABS: Hematocrit (blood only) 38.8 % (37.0-47.0); Hemoglobin 12.6 g/dl (12.0-16.0); Mean Corpuscular Hgb Conc 32.5 g/dL (32.0-36.0); Mean Corpuscular Volume 92.4 fL (80.0-100.0); Mean Platelet Volume 10.3 fL (9.4-12.4); Platelet Count 174 K/uL (130-400); RDW Coefficient of Variation 14.5 % (11.5-14.5); RDW Standard Deviation 49.1 fL (36.4-46.3); White Blood Count 14.83 K/ul (4.8-10.8)
[2024-08-22 08:07] LABS: BUN Creatinine Ratio 33.7 (10-20); Creatinine Clr Calc Pharmacy 54.6 ml/min; Magnesium 2.3 mg/dl (1.7-2.4); Phosphorus 3.1 mg/dl (2.5-4.9); Potassium 3.7 mmol/L (3.5-5.1)
--- NOTE | 2024-08-22 08:51 | Cardiology Progress Note ---
Date of Service August 22, 2024 Assessment & Plan (1) Pneumonia: (2) New onset atrial fibrillation: (3) CKD (chronic kidney disease) stage 3, GFR 30-59 ml/min: (4) Thoracic aortic atherosclerosis: (5) Ascending aorta enlargement: Plan Pneumonia. As per Hospitalist Service Atrial fibrillation. New onset. Observed in the setting off community acquire pneumonia. Duration unknown. Status post spontaneous conversion to sinus rhythm while off telemetry from 18:03 to 19:30, without overt clinical sequela. [id number] is at least 4 points for a female greater than 75 years of age with thoracic aortic plaque observed on imaging this admission. Options of management discussed with patient. We discussed the pathophysiology of atrial fibrillation, rate versus rhythm control, risks and benefits of anticoagulation, etc. Recommend addition of low dose beta-chaim therapy with metoprolol succinate 25 mg/day. Recommend Eliquis anticoagulation 5 mg twice a day for at least the next month. I do not think there will be a significant issue with beta-chaim therapy with her asthma history. Calcium channel chaim therapy will likely aggravate her chronic lower extremity edema which is an issue for her. Recommend avoiding antiarrhythmic therapy noting the mildly prolonged QTc interval on EKG's this admission. Mildly dilated ascending aorta. General management of thoracic aortic aneurysms includes measures to reduce cardiovascular risk, aggressive blood pressure con trol, statin therapy, avoiding heavy lifting and exercises involving sustained Valsalva maneuver, avoidance of fluoroquinolones. Recommend routine surveillance monitoring. Dyslipidemia. LDL cholesterol 175 mg/dL at [facility] last year, 163 mg/dL on 06/25/2024. Risks and benefits of lipid lowering therapy discussed and declined by the patient. Exertional dyspnea. Recommend referral for stress testing after resolution of the acute pulmonary exacerbation. Peripheral edema. Examination with lymphedematous changes. Recommend utilization of knee high compression stockings, 20 mmHg, on in the AM and off in the evening. I spent a total of 70 minutes coordinating, documenting, and providing care for this patient excluding time spent in the performance of separately billed services or time spent by another provider. Admission and Anticipated Discharge Date Admission Date: August 20, 2024 Subjective Patient seen in follow up. Son-in-law, Dr Arevalo, at bedside. Patient with sinus rhythm with frequent PACs this am. Heart rate in the low 100s. No cardiac symptoms. Physical Exam Constitutional: WD/WN, vitals as above Respiratory: Auscultation: no rales and no wheezes cough with deep inspiration Cardiovascular: RRR, no murmur, no edema Gastrointestinal (Abdomen): normal bowel sounds, soft, nontender, no hepatosplenomegaly Neurologic: cognitive impairment, no focal deficits Results & Data Vital Signs (Past 12 Hours) Vital Signs Temp Pulse Pulse Resp BP Pulse Ox O2 Del Method 08/22/24 07:36 36.9 C 103 H 18 132/75 93 Room Air 08/22/24 03:00 36.6 C 110 H 21 93 Room Air 08/22/24 03:00 36.5 C 100 H 20 115/70 92 Room Air 08/21/24 23:00 100 H 08/21/24 22:54 36.5 C 71 18 91 Room Air 08/21/24 22:45 130/80 08/21/24 21:30 Room Air (1) Pneumonia Laterality: unspecified laterality Lung location: unspecified part of lung Pneumonia type: due to unspecified organism Qualified Code(s): J18.9 - Pneumonia, unspecified organism
[2024-08-22] MEDS: APIXABAN 5 MG TABLET PO SCH (10:14)
[2024-08-22] MEDS: METOPROLOL SUCC 25MG EXT REL TAB PO SCH (10:21)
--- NOTE | 2024-08-22 12:56 | Hospitalist Progress Note ---
Date of Service August 22, 2024 Assessment & Plan (1) Atrial fibrillation with rapid ventricular response: (2) Pneumonia: (3) Asthma: Plan A-fib with RVR New onset Field Marketing Representative cayetano noted Patient finally agreed to metoprolol and eliquis this AM Meds started Will monitor TSH is elevated at 5.95, fT4 within normal range of 0.87 PCP can recheck in 6-8 weeks Multifocal pneumonia History of asthma -Increased O2 needs, previously on O2 at home, removed recently -Advair daily at home On admission, CRP elevated at 4.45, WBC BC 12.2, no left shift COVID/RSV/flu swab is negative CXR reviewed showing left trace and right pleural effusion, left basilar consolidation, right upper lobe opacity CTA chest noted small ground glass opacity in RUL, RML. No PE Continue levalbuterol nebs, pulmonary toilet with incentive spirometer, flutter, Continue antitussive IV ceftriaxone and doxycycline Needs amb pulse ox/2 step prior to dc 10/03 blood cultures growing bacillus. Contamination HbA1c 5.7 Possible prediabetes DVT ppx: teds, scds CODE: Full code I spent a total of 50 minutes coordinating, documenting and providing care for this patient excluding time spent in performance of separately billed services Admission and Anticipated Discharge Date Admission Date: August 20, 2024 Subjective Patient seen and examined Denied chest pain, palpitations Still has cough Denied any other complaints on ROS Flipped back into Afib this morning Physical Exam Constitutional: + well hydrated; no acute distress Eyes: PERRL, conjunctivae normal, anicteric sclerae ENMT: external ear and nose normal, oropharynx normal Respiratory: On room air, coughing, diminished breath sounds, +rhonchi Cardiovascular: Rate/Rhythm: + irregularly irregular Gastrointestinal (Abdomen): normal bowel sounds, soft, nontender, no hepatosplenomegaly Musculoskeletal: No pedal edema Neurologic: PERRL, EOMI, accommodation nl, no face palsy, no dysarthria Psychiatric: A+Ox3, euthymic affect Results & Data Results & Data Vital Signs (Past 12 Hours) Vital Signs Temp Pulse Resp BP Pulse Ox O2 Del Method 08/22/24 10:47 36.7 C 107 H 18 127/87 94 Room Air 08/22/24 08:00 Room Air 08/22/24 07:36 36.9 C 103 H 18 132/75 93 Room Air 08/22/24 03:00 36.6 C 110 H 21 93 Room Air 08/22/24 03:00 36.5 C 100 H 20 115/70 92 Room Air Laboratory Results Abnormal lab results 08/22/24 Range/Units 07:03 WBC 14.83 H (4.8-10.8) K/ul RDW Std Deviation 49.1 H (36.4-46.3) fL BUN 33 H (6-23) mg/dl BUN/Creatinine Ratio 33.7 H (10-20) Glucose 138 H (70-99(Fasting)) mg/dl (2) Pneumonia Laterality: unspecified laterality Lung location: unspecified part of lung Pneumonia type: due to unspecified organism Qualified Code(s): J18.9 - Pneumonia, unspecified organism
[2024-08-23 07:48] VITALS: RESP 18
[2024-08-23 08:48] LABS: Hematocrit (blood only) 43.9 % (37.0-47.0); Hemoglobin 14.6 g/dl (12.0-16.0); Mean Corpuscular Hemoglobin 30.7 pg (25.0-34.0); Mean Corpuscular Hgb Conc 33.3 g/dL (32.0-36.0); Mean Corpuscular Volume 92.4 fL (80.0-100.0); Platelet Count 194 K/uL (130-400); RDW Coefficient of Variation 14.5 % (11.5-14.5); RDW Standard Deviation 49.4 fL (36.4-46.3); Red Blood Count 4.75 M/uL (4.20-5.40); White Blood Count 8.85 K/ul (4.8-10.8)
[2024-08-23 09:06] LABS: BUN Creatinine Ratio 29.8 (10-20); Calcium 8.7 mg/dl (8.6-10.3); Creatinine Clr Calc Pharmacy 57.1 ml/min; Potassium 3.6 mmol/L (3.5-5.1)
--- NOTE | 2024-08-23 11:13 | Cardiology Progress Note ---
Date of Service August 23, 2024 Assessment & Plan (1) Pneumonia: (2) New onset atrial fibrillation: (3) CKD (chronic kidney disease) stage 3, GFR 30-59 ml/min: Plan Pneumonia. As per Hospitalist Service Increase metoprolol to succinate to 25 mg twice daily Continue Eliquis 5 mg twice daily. Supplement potassium 20 mill equivalents x 1 now. As previously noted, patient history of dyslipidemia, elevated LDL, atherosclerosis noted on thoracic aorta on CT chest performed this admission. Patient expresses wish to be on as few medications as possible. She consented to metoprolol and Eliquis after several rounds of negotiation and encouragement from her family. Statin therapy recommended, but would prioritize metoprolol and Eliquis for now. Admission and Anticipated Discharge Date Admission Date: August 20, 2024 Subjective Patient seen in cardiology follow-up. Denies any cardiac symptoms. Cough demonstrated during my assessment. Telemetry reveals that she reverted to atrial fibrillation at 1055 on 08/22/2024. Currently atrial fibrillation is present with rates ranging from 90 to 130 bpm, for the most part, rate controlled at just under 100 bpm.Denies any subjective symptoms of atrial fibrillation. Physical Exam Physical Exam: Constitutional: WD/WN, vitals as a christina Respiratory: Auscultation: no r ales and no wheeze s cough with [place]ott p inspiration Cardiovascular: RRR, no murmur, no edema Gastrointestinal ( Abdomen): normal bowel sound s, soft, nontender , no hepatosplenom egaly Neurologic: cognitive impairm ent, no focal defi cits Results & Data Vital Signs (Past 12 Hours) Vital Signs Temp Pulse Resp BP Pulse Ox O2 Del Method 08/23/24 07:47 36.4 C L 96 H 18 126/90 94 Room Air 08/23/24 07:18 100 H 20 94 Room Air 08/23/24 04:00 36.8 C 98 H 18 123/85 95 Room Air Laboratory Results CBC 08/23/24 Range/Units 08:28 WBC 8.85 (4.8-10.8) K/ul RBC 4.75 (4.20-5.40) M/uL Hgb 14.6 (12.0-16.0) g/dl Hct 43.9 (37.0-47.0) % Plt Count 194 (130-400) K/uL Comprehensive Metabolic Panel 08/23/24 Range/Units 08:28 Sodium 142 (136-145) mmol/L Potassium 3.6 (3.5-5.1) mmol/L Chloride 109 H (98-107) mmol/L Carbon Dioxide 25 (21-32) mmol/L BUN 28 H (6-23) mg/dl Creatinine 0.94 (0.6-1.2) mg/dl Glucose 116 H (70-99(Fasting)) mg/dl Calcium 8.7 (8.6-10.3) mg/dl Intake and Output 08/22/24 08/23/24 08/23/24 22:59 06:59 14:59 Intake Total 121.667 / 841.667 240 / 841.667 Output Total 675 / 675 Balance -553.333 / 166.667 240 / 166.667 Intake: IV 1.667 / 1.667 cefTRIAXone SODIUM 1,000 mg In 1.667 / 1.667 50 ml @ 100 mls/hr IV Q24H COUNTS INCLUDE 234 BEDS AT THE [facility] Rx#:[id number] Oral 120 / 840 240 / 840 Output: Urine 675 / 675 Other: # Unmeasured Voids 1 Weight 93.8 kg Weight Measurement Method Built in [facility] (1) Pneumonia Laterality: unspecified laterality Lung location: unspecified part of lung Pneumonia type: due to unspecified organism Qualified Code(s): J18.9 - Pneumonia, unspecified organism
[2024-08-23] MEDS: POTASSIUM CHLORIDE CRTAB 20 MEQ TABCR PO STA (11:46)
[2024-08-23] MEDS ORDERED: cefTRIAXone SODIUM 1,000 MG/50 ML BAG IV STA (12:10)
--- NOTE | 2024-08-23 12:12 | Discharge Summary ---
Date of Service August 23, 2024 Admission HPI Per Admitting Provider This is a 78-year-old female with PMHx of asthma, without any significant cardiac history who presented to PCP office today to establish as a new patient. She had complaints at that point in time of increased dyspnea on exertion worsening within the past 1 week, mild cough, previously had O2 as needed however does not have access to this at home recently. She was requesting oxygen prescription to be set up for her at outpatient clinic. She was found to be in rapid atrial fibrillation at the office and therefore sent over to the hospital. Patient had rates up into the 120s. She was given Cardizem IV bolus 10 mg x 1. IV magnesium 1 g. CXR showed left trace and right pleural effusion, left basilar consolidation and right upper lobe opacities concerning for pneumonia versus fluid overload. She was started on IV ceftriaxone in the ER. Upon my visit in the ER, pt HR remain in the 130s and she is asymptomatic. Admission Exam Per Admitting Provider General: awake, alert, no apparent distress, white female Head: Normocephalic, atraumatic ENT: PERRL, EOMI, no pharyngeal exudate, mucous membranes moist Chest: + coarse breath sounds throughout, +Faint crackles LLL and RLL, on room air O2 sats are 93% Cardiac: irregularly irregular with HR in 130s, + faint JEANNINE, no JVD, normal peripheral pulses, good capillary refill Abdominal: NABS x 4 quadrants, soft, nondistended, nontender to palpation, no rebound or guarding Extremities: +3 pitting edema BLE in feet and ankles, chronic skin changes from swelling, no peripheral erythema, calfs nontender to palpation Psych: Normal mood and affect Neuro: AAO x 3, strength intact bilaterally and rated 5/5, no motor deficits, speech is clear, no peripheral sensory deficits Principal Diagnosis Pneumonia New Atrial fibrillation with rapid ventricular response Discharge Exam Constitutional + well hydrated; no acute distress Eyes PERRL, conjunctivae normal, anicteric sclerae ENMT external ear and nose normal, oropharynx normal Respiratory On room air, not in respiratory distress, +rhonchi Cardiovascular Rate/Rhythm: + irregularly irregular Gastrointestinal (Abdomen) normal bowel sounds, soft, nontender, no hepatosplenomegaly Neurologic PERRL, EOMI, accommodation nl, no face palsy, no dysarthria Psychiatric A+Ox3, euthymic affect Discharge Data Allergies Allergy/AdvReac Type Severity Reaction Status Date / Time No Known Allergies Allergy Unverified 09/21/19 09:22 Consultations 08/20/24 16:25 ED Decision to Admit Stat 08/20/24 17:42 Consult Cardiology Routine Ordered Studies 08/20/24 17:14 CT angio chest PE protocol Stat Hospital Course (1) Atrial fibrillation with rapid ventricular response: (2) Pneumonia: (3) Asthma: Plan A-fib with RVR New onset Apprentice Cook evaluated TTE showed EF 60-65, normal wall motion, mildly dilated LA, mild MR, Grade II diastolic dysfunction. PASP 47mmgHg Patient initially refused rate controlling meds and anticoagulation for stroke prophylaxis for CHADVASC of 4 However, after multiple discussions with her and family, she agreed. Discharged on po metoprolol succinate 25mg BID and eliquis 5mg BID Antiarrhythmic avoided due to mildly prolonged QTc on EKG Multifocal pneumonia History of asthma On admission, CRP elevated at 4.45, WBC BC 12.2, no left shift COVID/RSV/flu swab was negative CXR reviewed showing left trace and right pleural effusion, left basilar consolidation, right upper lobe opacity CTA chest noted small ground glass opacity in RUL, RML. No PE Was managed with IV ceftriaxone and doxycycline inpatient Chanaged to cefpodoxime and doxycycline on discharge to complete treatment 2 step today did not show any oxygen needs at rest or with activity 1/4 blood cultures growing bacillus. Noted to be Contamination Hypothyroidism TSH is elevated at 5.95, fT4 within normal range of 0.87 Continue home thyroid PCP can recheck in 6-8 weeks I called patient's son in law Dr Agustín Ma and updated him Total Time Total Time Spent Total Time Spent (In Minutes): 35 Total Time Includes: Examination of the Patient, Discharge Planning, Medication Reconciliation, Communication With Other Providers and Other Discharge Plan Discharge Items Patient Disposition: Home - Home Health Services Reason For Visit: AFRIB, RVR Discharge Diagnosis: Pneumonia New Atrial fibrillation with rapid ventricular response Activity: Resume your previous activity Non-emergency contact: Primary Care Provider and Apprentice Cook Call non-emergency contact if: you have any medication questions and your symptoms worsen Follow-up/Referrals: Brenna Singh PAMaria DoloresC [Primary Care Provider] - Diet: Heart Healthy Addtl Attending Provider Instructions: Mrs Espinoza You were hospitalized and managed for the above listed diagnoses. You are being discharged on metoprolol succinate and eliquis for better heart rate control and reduce risk of stroke respectively. Please ensure follow up with your Primary Doctor. It was a pleasure taking care of you Pending Studies at Discharge: No Stand-Alone Forms: [facility], Smoking Cessation Medications and DC Order Prescriptions: New doxycycline hyclate 100 mg Capsule 100 mg PO BID 2 Days Qty: 5 0RF Rx Instructions: Start on 08/23/24 Eliquis 5 mg Tablet 5 mg PO BID 60 Days Qty: 120 0RF metoprolol succinate 25 mg Tablet Extended Release 24 Hr 25 mg PO BID 60 Days Qty: 120 0RF cefpodoxime 200 mg tablet 200 mg PO BID 2 Days Qty: 4 0RF Rx Instructions: must administer with a meal/food. Start on 08/24/24 guaifenesin [Mucinex] 600 mg Tablet Extended Release 12hr 600 mg PO Q12 Qty: 7 0RF Continued fluticasone propion-salmeterol [Advair Diskus] 250-50 mcg/dose Blister With Device 1 inh INHALATION DAILY cetirizine [Zyrtec] 10 mg Tablet 10 mg PO DAILY montelukast [Singulair] 10 mg Tablet 10 mg PO DAILY thyroid (pork) 60 mg tablet 60 mg PO QAM coenzyme Q10 [Co Q-10] 10 mg Capsule 10 mg PO DAILY albuterol sulfate 90 mcg/actuation Hfa Aerosol Inhaler 1 inh INHALATION QID PRN (Reason: Shortness Of Breath Or Wheezing) mecobalamin (vitamin B12) [B12 Active] 1,000 mcg Tablet,Chewable 1,000 mcg PO DAILY No Action (DME) Oxygen Rx Instructions: per pt she had a oxygen compressor/nasal cannula that she used has needed and it helped her greatly but someone came the other day and took it from her Discharge Orders: Discharge Order (Routine); Ordered 08/23/24 Ordered By: Rhina Amanda/Other Patient Handouts: AFib Preventing Stroke Admission Data Admit Date/Time: 08/20/24 16:49 Attending Provider: Rhina Cho I. Admcande Provider: Dena Scott Primary Care Provider: Bernna Singh Other Providers: Dena Scott; Justo Robins; Leonard Wilkins Other Interventions: Discharge Summary Assessment (RN) Last Done: 08/23/24 13:48
[2024-08-23 12:30] VITALS: TEMP 97.7
[2024-08-23] MEDS: cefTRIAXone SODIUM 2,000 MG/50 ML BAG IV STA (12:55)
[2024-08-23 13:50] VITALS: BP 111/68
[2024-08-23 14:04] VITALS: PULSE 109; O2SAT 94
[2024-08-23] MEDS ORDERED: METOPROLOL SUCC 25MG EXT REL TAB PO SCH (21:00)
== END 2024-08-23 14:59 | disposition home health service (06) | DRG 308 ==
LOC: ED 14:32 → 2S 16:49 → SUATTDRO 16:49 → 2S 08-21 00:24